=== PATIENT | female | born 1945 | race African-American/Black ===

== ENCOUNTER 2016-10-12 02:19 | Observation (INO) | payer MEDICARE, OTHER ==
[~2016-10-12] VITALS: Ht 167.6 cm; Wt 101.2 kg
--- NOTE | 2016-10-12 02:41 | ED.ADGEN ---
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 She describes this chest pain to her primary care physician who said that she would need to see a coating supervisor and possibly had stents placed for this suspected cardiac chest pain. Patient was asleep tonight when this pain woke her up from sleep she is diaphoretic from this pain. The pain is worsened with chest wall movement deep breaths whenever chest wall with her arms. The pain does radiate to the back as well as to each arm bilaterally she has describes some paresthesias in her upper extremities as well. She's been lightheaded and dizzy with some episodes but denies any dizziness at this time. She denies any nausea vomiting diarrhea. She does claim to have a slight cough once in a while which might be related to lisinopril. She denies any fevers chills change in medical regimen trauma or travel. PCPs Dr. Ivania Melgar. Review of Systems Review of Systems Constitutional: Denies fever or chills she has had some diaphoresis Eyes: Denies change in visual acuity, redness, or eye pain HENT: Denies nasal congestion or sore throat Respiratory: Denies cough or shortness of breath Cardiovascular: No additional information not addressed in HPI [] GI: Denies abdominal pain, nausea, vomiting, bloody stools or diarrhea [] : Denies dysuria or hematuria [] Musculoskeletal: Denies back pain or joint pain [] Integument: Denies rash or skin lesions [] Neurologic: Denies headache, focal weakness or sensory changes [] Endocrine: Denies polyuria or polydipsia [] Current Medications Current Medications Current Medications Medications (Trade) Dose Ordered Sig/Magda Start Time Stop Time Status Last Admin Dose Admin Aspirin (Thaddeus Aspirin) 325 mg 1X ONCE 10/12/16 03:00 10/12/16 03:01 DC Lorazepam (Ativan) 1 mg 1X ONCE 10/12/16 03:00 10/12/16 03:01 DC 10/12/16 02:49 1 MG Morphine Sulfate 4 mg 4 mg PRN Q15MIN PRN 10/12/16 02:45 10/13/16 02:44 10/12/16 02:48 4 MG Nitroglycerin (Nitrostat) 0.4 mg PRN Q5MIN PRN 10/12/16 02:45 10/13/16 02:44 10/12/16 02:49 0.4 MG Sodium Chloride (Iv Sodium Chloride 0.9% 1,000ml) 1,000 ml @ 1,000 mls/hr Q1H 10/12/16 03:00 10/12/16 03:59 10/12/16 02:51 1,000 MLS/HR Sodium Chloride (Normal Saline Flush) 10 ml QSHIFT PRN 10/12/16 02:45 Allergies Allergies Allergies Coded Allergies Type Severity Reaction Last Updated Verified acetic acid Allergy Intermediate 10/12/16 Yes bacitracin Allergy Intermediate 10/12/16 Yes carbamide peroxide Allergy Intermediate 10/12/16 Yes hydrocortisone Allergy Intermediate 10/12/16 Yes neomycin Allergy Intermediate 10/12/16 Yes polymyxin B Allergy Intermediate 10/12/16 Yes Unclear antibiotic eardrops, surgical tape Physical Exam Physical Exam Constitutional: Well developed, well nourished, moderate distress no obvious diaphoresis patient is mildly tachypneic HENT: Normocephalic, atraumatic, bilateral external ears normal, oropharynx moist, no oral exudates, nose normal. [] Eyes: PERRLA, EOMI, conjunctiva normal, no discharge. [] Neck: Normal range of motion, no tenderness, supple, no stridor. [] Cardiovascular patient does state significant chest wall tenderness to palpation which is worsened with direct pressure over the xiphoid sternum and upper abdomen. Lungs & Thorax: Bilateral breath sounds clear to auscultation [] Abdomen: Bowel sounds normal, soft, no tenderness, no masses, no pulsatile masses. [] Skin: No diaphoresis skin warm and dry and intact Back: No tenderness, no CVA tenderness. [] Extremities: No tenderness, no cyanosis, no clubbing, ROM intact, no edema. [] Neurologic: Alert and oriented X 3, normal motor function, normal sensory function, no focal deficits noted. [] Psychologic: Affect normal, judgement normal, mood normal. [] Current Patient Data Vital Signs Vital Signs Date Time Temp Pulse Resp B/P Pulse Ox O2 Delivery O2 Flow Rate FiO2 10/12/16 03:08 74 12 130/73 98 Nasal Cannula 2 10/12/16 02:25 97.9 Vital signs on arrival blood pressure 142/92 sats 98% pulse 91 respirations 25. Lab Results Laboratory Tests Test 10/12/16 02:25 10/12/16 02:35 White Blood Count 8.2x10^3/uL (4.0-11.0) Red Blood Count 4.32x10^6/uL (3.50-5.40) Hemoglobin 13.1g/dL (12.0-15.5) Hematocrit 39.8% (36.0-47.0) Mean Corpuscular Volume 92fL (79-100) Mean Corpuscular Hemoglobin 30pg (25-35) Mean Corpuscular Hemoglobin Concent 33g/dL (31-37) Red Cell Distribution Width 14.7% (11.5-14.5) H Platelet Count 252x10^3/uL (140-400) Neutrophils (%) (Auto) 52% (31-73) Lymphocytes (%) (Auto) 39% (24-48) Monocytes (%) (Auto) 8% (0-9) Eosinophils (%) (Auto) 1% (0-3) Basophils (%) (Auto) 0% (0-3) Neutrophils # (Auto) 4.2x10^3uL (1.8-7.7) Lymphocytes # (Auto) 3.2x10^3/uL (1.0-4.8) Monocytes # (Auto) 0.6x10^3/uL (0.0-1.1) Eosinophils # (Auto) 0.1x10^3/uL (0.0-0.7) Basophils # (Auto) 0.0x10^3/uL (0.0-0.2) Sodium Level 139mmol/L (136-145) Potassium Level 4.0mmol/L (3.5-5.1) Chloride Level 103mmol/L (98-107) Carbon Dioxide Level 26mmol/L (21-32) Anion Gap 10 (6-14) Blood Urea Nitrogen 10mg/dL (7-20) Creatinine 1.0mg/dL (0.6-1.0) Estimated GFR (Cockcroft-Gault) 66.5 BUN/Creatinine Ratio 10 (6-20) Glucose Level 157mg/dL (70-99) H Calcium Level 9.1mg/dL (8.5-10.1) Magnesium Level 1.7mg/dL (1.8-2.4) L Total Bilirubin 0.4mg/dL (0.2-1.0) Aspartate Amino Transferase (AST) 26U/L (15-37) Alanine Aminotransferase (ALT) 49U/L (14-59) Alkaline Phosphatase 95U/L (46-116) Creatine Kinase 89U/L (26-192) Creatine Kinase MB (Mass) 0.6ng/mL (0.0-3.6) Creatine Kinase MB Relative Index 0.7% (0-4) Troponin I Quantitative < 0.017ng/mL (0-0.055) BR-Mkq-X-Type Natriuretic Peptide 44pg/mL (0-124) Total Protein 7.8g/dL (6.4-8.2) Albumin 3.5g/dL (3.4-5.0) Albumin/Globulin Ratio 0.8 (1.0-1.7) L Lipase 76U/L (73-393) POC Troponin I 0.00ng/ml (<0.08) EKG EKG EKG timed 2:22 AM 10/12/2016 heart rate of 87 normal sinus rhythm P waves within normal limits QRS within normal limits and normal width. Patient is T-wave flattening in the anterior leads V1 and V2 V3 elevationorchangesconsistentwithacutecoronaryeventatthistime.PatientalsoT- [id number].[] Radiology/Procedures Radiology/Procedures [Chest x-ray dated 10/04/2016 approximately 241 morning this rates well-inflated lungs no evidence of pneumothorax. Cardiac shadow is within normal limits with no evidence of pleural effusion. No subcutaneous air bony structures are within normal limits with no fractures.] Course & Med Decision Making Course & Med Decision Making Pertinent Labs and Imaging studies reviewed. (See chart for details) [Upon patient arrival history and physical very concerning for possible cardiac ischemia EKG was within normal limits with no obvious evidence of acute coronary event. Patient early taken aspirin prior to arrival oxygen fluids nitrates and morphine all improved symptoms per patient is calm, comfortable. Initial i-STAT troponin was negative. Patient's heart score is is approximately 3 which post sternotomy score of 12-16.6% at this point we'll continue to wait for labs to return admit patient to the hospital for cardiac evaluation possible for her to outpatient PCI for stenting.] Patient's pain is improved from a 10 of 10 now to a 5 of 10. It is no episodic lasting only seconds. This is very atypical for cardiac chest pain. I think patient is safe for admission as a moderate risk chest pain patient to be admitted to the hospital for serial examinations and evaluation by coating supervisor in the morning. Differential diagnosis includes but not limited to acute coronary syndrome, aortic dissection, pulmonary medicine, as pneumothorax pneumothorax, pericardial tap and on, mediastinitis, pericarditis, myocarditis, endocarditis, heart failure, pulmonary malignancy, esophageal reflux, Boerhaave syndrome syndrome, hiatal hernia, pancreas, musculoskeletal chest pain, psychiatric chest tightness, herpes zoster, lupus, sarcoid, scleroderma, Page on-call BURKE for admission for chest pain rule out. Times now 3:25 AM page returned at 3:27 AM accepted by attending physician. I discussed disposition with family and patient and the agreement. Final Impression Final Impression Chest pain of unclear etiology, hypertension [] Problems: Dragon Disclaimer Dragon Disclaimer This electronic medical record was generated, in whole or in part, using a voice recognition dictation system. JUSTIN LEOS MD Oct 12, 2016 02:41
[2016-10-12] MEDS ORDERED: MORPHINE SULFATE 4 MG/ML DISP.SYRIN. IV/SQ PRN (02:45)
[2016-10-12] MEDS ORDERED: NITROGLYCERIN SUBLINGUAL 0.4 MG BOTTLE OF 25. SL PRN ×2 (02:45→04:50)
[2016-10-12] MEDS ORDERED: 0.9 % SODIUM CHLORIDE 10 ML DISP.SYRIN. IV PRN (02:45)
[2016-10-12 02:52] LABS: BASO % 0 % (0-3); EOS # 0.1 x10^3/uL (0.0-0.7); EOS % 1 % (0-3); HEMATOCRIT 39.8 % (36.0-47.0); HEMOGLOBIN 13.1 g/dL (12.0-15.5); LYMPH # 3.2 x10^3/uL (1.0-4.8); LYMPH % 39 % (24-48); MEAN CORPUSCULAR HEMOGLOBIN 30 pg (25-35); MEAN CORPUSCULAR HGB CONC 33 g/dL (31-37); MEAN CORPUSCULAR VOLUME 92 fL (79-100); MONO # 0.6 x10^3/uL (0.0-1.1); MONO % 8 % (0-9); NEUT # 4.2 x10^3uL (1.8-7.7); NEUT % 52 % (31-73); PLATELET COUNT 252 x10^3/uL (140-400); RED BLOOD COUNT 4.32 x10^6/uL (3.50-5.40); RED CELL DISTRIBUTION WIDTH 14.7 % (11.5-14.5); WHITE BLOOD COUNT 8.2 x10^3/uL (4.0-11.0)
[2016-10-12] MEDS ORDERED: LORAZEPAM 2 MG/ML VIAL IV ONE (03:00)
[2016-10-12] MEDS ORDERED: ASPIRIN 325 MG TABLET PO ONE (03:00)
[2016-10-12] MEDS ORDERED: IV NORMAL SALINE 1,000ML 1,000 ML IV SCH (03:00)
[2016-10-12 03:23] LABS: ALBUMIN 3.5 g/dL (3.4-5.0); ALBUMIN/GLOBULIN RATIO 0.8 (1.0-1.7); CALCIUM 9.1 mg/dL (8.5-10.1); GFR 66.5; MAGNESIUM 1.7 mg/dL (1.8-2.4); TOTAL BILIRUBIN 0.4 mg/dL (0.2-1.0); TOTAL PROTEIN 7.8 g/dL (6.4-8.2)
--- NOTE | 2016-10-12 04:21 | EKG ---
[address] [address] Test Date: 2016-10-12 Test Time: 02:29:28 Pat Name: CLARE ROSARIO Department: Room: 105 A Gender: F Lecturer In Computer Science: : 1945 Requested By: JUSTIN LEOS Order Number: [id number] Reading MD: Maximiliano Muniz Measurements Intervals [place] Rate: 87 P: 36 RI: 140 QRS: -15 QRSD: 76 T: 17 QT: 392 QTc: 472 Interpretive Statements SINUS RHYTHM NON-SPECIFIC ST/T CHANGES Electronically Signed On 10-15-2016 9:38:23 CDT by Maximiliano Muniz
[2016-10-12] MEDS ORDERED: ONDANSETRON PF 4 MG/2 ML VIAL. IV PRN (04:50)
[2016-10-12] MEDS: MORPHINE SULFATE 4 MG/ML DISP.SYRIN. IV PRN ×3 (05:18→17:38)
--- NOTE | 2016-10-12 05:20 | NUR ---
Sujata Coyle a 71 y/o was admitted to room 105 from the emergency room. Complaints of chest pain for a few months, she states it got worst yesterday around 1600. Pt oriented to room, unit and admission completed. Pt complains of pain reoccurence with moving to unit bed from stretcher. Pt medicated per orders. Reviewed poc with pt.
[2016-10-12 05:35] VITALS: BP 145/83
[2016-10-12] MEDS: IV NORMAL SALINE 1,000ML 1,000 ML IV SCH ×2 (06:00→17:36)
[2016-10-12] MEDS ORDERED: ESCI20TA (07:00)
[2016-10-12] MEDS ORDERED: ERGO500012 (07:00)
[2016-10-12] MEDS ORDERED: SITA1TAB11 (07:00)
[2016-10-12] MEDS ORDERED: AMIT25TA (07:00)
[2016-10-12] MEDS ORDERED: OMEP20CA9 (07:00)
[2016-10-12] MEDS ORDERED: LISI-338 (07:00)
[2016-10-12] MEDS ORDERED: GLYB3TAB (07:00)
[2016-10-12] MEDS ORDERED: [UNRECOGNIZED DRUG - CODE] (07:00)
--- NOTE | 2016-10-12 07:17 | RAD ---
Exam: AP portable chest. History: Chest pain or shortness of air beginning tonight. Comparison: None. Findings: The heart and mediastinal structures are within normal limits for size. Lungs are without infiltrate. No pneumothorax or pleural effusion is appreciated. Impression: 1. No acute cardiopulmonary process.
[2016-10-12] MEDS ORDERED: PANTOPRAZOLE 40 MG TABLET. PO ONE (09:30)
[2016-10-12] MEDS: KETOROLAC 30 MG/ML VIAL. IM PRN ×2 (09:40→19:26)
--- NOTE | 2016-10-12 10:13 | PDOC2 ---
CONSULT Date of Admission DATE: 10/12/16 TIME: 09:54 Reason for Consult: cp History of Present Illness Ms Coyle is a 71 year old female with a history of hypertension and diabetes mellitus who presents with complaints of chest pain. She reports off an on pain for several weeks that became constant yesterday and increased so she presented to ED. She describes a catching sensation in her lower sternal area that radiates along her ribs on the right side beneath her breast, into her back. She reported some associated radiation down both arms with tingling in her hands to the ED physician. The pain is increased with movement and she is tender to palpation right and left of the mid sternum as well as along her right costal margin. She also reports some chest pressure that has been off and on which increases with exertion and resolves with rest after about 10 minutes. She reports dyspnea on exertion that occurs off and on with walking about 50 feet. She has reduced her activity over the last couple of years but has recently gone back to work and reports increased symptoms since that time. She complains of chronic fatigue. She denies congestive symptoms but does sleep with 4 pillows chronically due to neck pain. She frequently has headaches associated with her neck pain. She does have additional complaints of epigastric pain associated with eating. She reports immediate onset when this occurs. Past Medical History Diabetes mellitus hypertension arthritis depression she reports frequent strep infections when she was young but denies rheumatic fever Past Surgical History javan, tubal ligation, 5 foot surgeries, right wrist and left knee surgeries. Family History Alzheimer disease in her mother otherwise unknown Social History non smoker, no significant ETOH, no illicit drugs Current Medications She reports metformin and lisinopril at home but is unsure of what else or doses. She gets her medications from [place]. Current Medications Aspirin (Thaddeus Aspirin) 325 mg 1X ONCE PO ; Start 10/12/16 at 03:00; Stop 10/12 at 03:01; Status DC Lorazepam (Ativan) 1 mg 1X ONCE IV Last administered on 10/12/16 02:49; Start 10/12/16 at 03:00; Stop 10/12/16 at 03:01; Status DC Nitroglycerin (Nitrostat) 0.4 mg PRN Q5MIN PRN SL CP RATING > 1/10 Last administered on 10/12/16 02:49; Start 10/12/16 at 02:45; Stop 10/12/16 at 04:59 ; Status DC Morphine Sulfate 4 mg 4 mg PRN Q15MIN PRN IV/SQ PAIN GREATER THAN 3/10 Last administered on 10/12/16 02:48; Start 10/12/16 at 02:45; Stop 10/13/16 at 02:44 Sodium Chloride (Iv Sodium Chloride 0.9% 1,000ml) 1,000 ml @ 1,000 mls/hr Q1H IV Last administered on 10/12/16 02:51; Start 10/12/16 at 03:00; Stop at 04:00; Status DC Sodium Chloride (Normal Saline Flush) 10 ml QSHIFT PRN IV AFTER MEDS AND BLOOD DRAWS; Start 10/12/16 at 02:45 Morphine Sulfate (Morphine 4mg Syringe) 4 mg PRN Q4HRS PRN IV SEVERE PAIN Last administered on 10/12/16 09:07; Start 10/12/16 at 04:50 Nitroglycerin (Nitrostat) 0.4 mg PRN Q5MIN PRN SL CHEST PAIN Last administered on 10/12/16 05:30; Start 10/12/16 at 04:50 Ondansetron HCl 4 mg 4 mg PRN Q6HRS PRN IV NAUSEA/VOMITING Last administered on 10/12/16 05:17; Start 10/12/16 at 04:50 Sodium Chloride (Iv Sodium Chloride 0.9% 1,000ml) 1,000 ml @ 100 mls/hr Q10H IV Last administered on 10/12/16 06:00; Start 10/12/16 at 06:00 Ketorolac Tromethamine (Toradol) 30 mg PRN Q6HRS PRN IM PAIN Last administered on 10/12/16 09:40; Start 10/12/16 at 09:00; Stop 10/17/16 at 08:59 Pantoprazole Sodium (Protonix) 40 mg 1X ONCE PO Last administered on 09:40; Start 10/12/16 at 09:30; Stop 10/12/16 at 09:31; Status DC Aspirin (Children'S Aspirin) 81 mg DAILYWBKFT PO ; Start 10/13/16 at 09:45 Metoprolol Tartrate (Lopressor) 12.5 mg BID PO ; Start 10/12/16 at 09:45 Active Scripts Active Reported Janumet 50-1,000 Mg Tablet (Sitagliptin Phos/Metformin Hcl) 1 Each Tablet Escitalopram Oxalate 20 Mg Tablet Amitriptyline Hcl 25 Mg Tablet Allergy Relief (Fexofenadine Hcl) 180 Mg Tablet Lisinopril 5 Mg Tablet Vitamin D2 (Ergocalciferol (Vitamin D2)) 50,000 Unit Capsule Omeprazole 20 Mg Capsule.dr Mata (Glyburide,Micronized) 3 Mg Tablet Allergies: Coded Allergies: acetic acid (Verified Allergy, Intermediate, 10/12/16) bacitracin (Verified Allergy, Intermediate, 10/12/16) EAR DROPS carbamide peroxide (Verified Allergy, Intermediate, 10/12/16) hydrocortisone (Verified Allergy, Intermediate, 10/12/16) EAR DROPS neomycin (Verified Allergy, Intermediate, 10/12/16) EAR DROPS polymyxin B (Verified Allergy, Intermediate, 10/12/16) EAR DROPS General: YES: Fatigue PSYCHOLOGICAL ROS: YES: Depression HEENT: YES: [place] ALLERGY AND IMMUNOLOGY: YES: Post Nasal Drip, Seasonal Allergies Respiratory: YES: Cough, SOB with excertion Cardiovascular: yes: Chest Pain Musculoskeletal: YES: Joint Pain, Pain In: (neck) Neurological: YES: Dizziness, Numbness/Tingling General: Alert, Oriented X3, Cooperative, moderate distress HEENT: Atraumatic, EOMI, Mucous membr. moist/pink Lungs: Clear to auscultation, Normal air movement Heart: Regular rate, Normal S1, Normal S2, Other (no obvious murmurs, no gallops, clicks or rubs) Abdomen: Normal bowel sounds, Soft Extremities: No clubbing, No cyanosis, No edema, Normal pulses Neuro: Normal speech, Strength at 5/5 X4 ext Psych/Mental Status: Mental status NL, Mood NL VITALS Vital Signs Date Time Temp Pulse Resp B/P Pulse Ox O2 Delivery O2 Flow Rate FiO2 10/12/16 06:54 18 98 Nasal Cannula 2.0 10/12/16 05:35 97.5 73 145/83 Labs Laboratory Tests Test 10/12/16 02:25 10/12/16 02:35 10/12/16 06:16 White Blood Count 8.2x10^3/uL (4.0-11.0) Red Blood Count 4.32x10^6/uL (3.50-5.40) Hemoglobin 13.1g/dL (12.0-15.5) Hematocrit 39.8% (36.0-47.0) Mean Corpuscular Volume 92fL (79-100) Mean Corpuscular Hemoglobin 30pg (25-35) Mean Corpuscular Hemoglobin Concent 33g/dL (31-37) Red Cell Distribution Width 14.7% (11.5-14.5) Platelet Count 252x10^3/uL (140-400) Neutrophils (%) (Auto) 52% (31-73) Lymphocytes (%) (Auto) 39% (24-48) Monocytes (%) (Auto) 8% (0-9) Eosinophils (%) (Auto) 1% (0-3) Basophils (%) (Auto) 0% (0-3) Neutrophils # (Auto) 4.2x10^3uL (1.8-7.7) Lymphocytes # (Auto) 3.2x10^3/uL (1.0-4.8) Monocytes # (Auto) 0.6x10^3/uL (0.0-1.1) Eosinophils # (Auto) 0.1x10^3/uL (0.0-0.7) Basophils # (Auto) 0.0x10^3/uL (0.0-0.2) Sodium Level 139mmol/L (136-145) Potassium Level 4.0mmol/L (3.5-5.1) Chloride Level 103mmol/L (98-107) Carbon Dioxide Level 26mmol/L (21-32) Anion Gap 10 (6-14) Blood Urea Nitrogen 10mg/dL (7-20) Creatinine 1.0mg/dL (0.6-1.0) Estimated GFR (Cockcroft-Gault) 66.5 BUN/Creatinine Ratio 10 (6-20) Glucose Level 157mg/dL (70-99) Calcium Level 9.1mg/dL (8.5-10.1) Magnesium Level 1.7mg/dL (1.8-2.4) Total Bilirubin 0.4mg/dL (0.2-1.0) Aspartate Amino Transf (AST/SGOT) 26U/L (15-37) Alanine Aminotransferase (ALT/SGPT) 49U/L (14-59) Alkaline Phosphatase 95U/L (46-116) Creatine Kinase 89U/L (26-192) 69U/L (26-192) Creatine Kinase MB (Mass) 0.6ng/mL (0.0-3.6) 0.5ng/mL (0.0-3.6) Creatine Kinase MB Relative Index 0.7% (0-4) 0.7% (0-4) Troponin I Quantitative < 0.017ng/mL (0-0.055) < 0.017ng/mL (0-0.055) QD-Dmb-P-Type Natriuretic Peptide 44pg/mL (0-124) Total Protein 7.8g/dL (6.4-8.2) Albumin 3.5g/dL (3.4-5.0) Albumin/Globulin Ratio 0.8 (1.0-1.7) Lipase 76U/L (73-393) Bedside Troponin I 0.00ng/ml (<0.08) Images EKG - sinus rhythm with non specific t abn. no acute ischemic changes. CXR - no acute process Assessment/Plan 1. Chest pain, multifactorial -Acute pain likely musculoskeletal - continue analgesics, could possibly benefit from MRI C spine outpatient. Mgmt per PCP. -Intermittent chest pressure with associated decrease in functional capacity and dyspnea on exertion more concerning for coronary disease. [place] is ruled out. Suggest echocardiogram for LV function and wall motion. If no acute abnormalities, suggest outpatient lexiscan MPI. Will start aspirin, and beta yuni. Request home med list and adjust accordingly. Check lipids. 2. Hypertension - resume home meds 3. unknown lipid status - check lipids 4. diabetes mellitus - per PCP 5. epigastric pain - PPI, suggest outpatient GI evaluation. Problems: JUWAN MENENDEZ COMPLAINT SUPERVISOR Oct 12, 2016 10:13
[2016-10-12] MEDS: METOPROLOL TART IMMED RELEASE 25 MG TABLET PO SCH ×3 (10:30→20:26)
[2016-10-12] MEDS ORDERED: MAGNESIUM SULFATE 2GM 50 ML IV ONE (10:30)
--- NOTE | 2016-10-12 10:46 | ACF ---
Admit Criteria Forms Admit Criteria Forms Admit Criteria Forms CARDIOLOGY GRG Clinical Indications for Admission to Inpatient Care ( Place 'X' for any and all applicable criteria): Hospital admission is needed for appropriate care of the patient because of ANY ONE of the following (1): [ ] I. Hemodynamic instability as indicated by ALL of the following (1)(2)(3) (4)(5) [ ]a) Vital signs or other findings not as expected for chronic patient condition or baseline [ ]b) Instability indicated by ANY ONE of the following: [ ]i) Hypotension [ ]ii) Symptomatic Tachycardia unresponsive to treatment ( e.g., analgesia, fluids, sedation as indicated) [ ]iii) Inadequate perfusion indicated by ANY ONE of the following: [ ] 1) Lactic acidosis (> 2 mmol/L) [ ] 2) New abnormal capillary refill (> 3 seconds) [ ] 3) Reduced urine output [ ] 4) New altered mental status [ ]iv) Orthostatic vital sign changes unresponsive to treatment (e.g., fluids) [ ]v) IV inotropic or vasopressor medication required to maintain adequate blood pressure or perfusion [ ] II. Severe heart failure as indicated by ANY ONE of the following(17)(18) [ ]a) Respiratory distress [ ]b) Hypotension [ ]c) Anasarca (refractory to outpatient therapy) [ ]d) Cardiac arrhythmias of immediate concern [ ]e) Myocardial ischemia [ ] III. Cardiac arrhythmias or findings of immediate concern indicated by ANY ONE of the following (19)(20): [ ] a) Heart rhythms that are inherently dangerous or unstable indicated by ANY ONE of the following (21)(22)(23): [ ] i) Resuscitated ventricular fibrillation or cardiac arrest [ ] ii) Ventricular escape rhythm [ ] iii) Sustained ventricular tachycardia (30 seconds or more of ventricular rhythm at greater than 100 beats per minute) [ ] iv) Nonsustained ventricular tachycardia and ANY ONE of the following: [ ] 1) Suspected cardiac ischemia as cause or consequence of ventricular tachycardia [ ] 2) In setting of acute myocarditis [ ] b) Unstable cardiac conduction defects indicated by ANY ONE of the following(23)(24)(25) [ ] i) Type II second-degree atrioventricular block [ ]ii) Third-degree atrioventricular block [ ]iii) New-onset left bundle branch block with suspected myocardial ischemia [ ]c) Any heart rhythm and ANY ONE of the following (21)(22)(26)(27) (28) [ ] i) Continuous long-term ECG monitoring needed (e.g., initiation of drug requiring monitoring for more than 24 hours) [ ] ii) Patient has automatic implanted cardioverter defibrillator that is repeatedly firing, malfunctioning, or in need of immediate adjustment of settings beyond the scope of ambulatory or observation care [ ]d) Heart rhythms of concern due to ANY ONE of the following: [ ] i) Hypotension [ ] ii) Respiratory distress [ ] iii) Association with other significant symptoms (e.g., bradycardia with syncope or ongoing dizziness, supraventricular tachycardia with chest pain (14)(15)(17) [ ] IV. Monitoring for cardiac contusion beyond the scope of observation care needed [A](30)(31)(32) [ ] V. Surgical or device complication (e.g., valve replacement complication , pacemaker dysfunction) (35)(41)(44)(45)(46) [ ] . Inpatient palliative care needed. [B](49) Also use Inpatient Palliative Care Criteria [ ] VII. Nonbacterial thrombotic (marantic) endocarditis (36)(43)(47)(48) [X] VIII. Cardiology condition, symptom, or finding for which emergency and observation care has failed or are not considered appropriate. [ ] IX. Acute valvular disease requiring inpatient as indicated by ANY ONE of the following (41) [ ]a) Acute valvular regurgitation (42) [ ]b) Noninfectious valvulitis (43) [ ]c) Obstructive valve thrombosis [ ]d) Paravalvular leak [ ]e) Other significant valvular disorder remaining after emergency or observation level of care (as appropriate) [ ]X. Pericardial disease requiring inpatient treatment as indicated by ANY ONE of the following (33)(34)(35)(36)(37) [ ]a) Suspected tamponade (38)(39)(40) [ ]b) Hemopericardium [ ]c) Other significant pericardial disorder remaining after emergency or observation level of care (as appropriate) [ ] XI. Cardiac ischemia beyond scope of emergency and observation care. [ ] XII. Hypertension requiring inpatient treatment as indicated by ANY ONE of the following (6)(7)(8) [ ]a) SBP greater than 220 mm Hg or DBP greater than 120 mmHg despite treatment [ ]b) SBP greater than 140 mm Hg or DBP greater than 100 mm Hg with evidence of acute end organ damage as indicated by ANY ONE of the following [ ] i) Encephalopathy [ ] ii) Acute renal failure as indicated by new onset of ANY ONE of the following (9)(10)(11)(12)(13) [ ]1) 3-fold rise in serum creatinine from baseline [ ]2) Serum creatinine greater than 4 mg/dL ( 354 micromoles/L) with acute rise greater than 0.5 mg/dL (44.2 micromoles/L) [ ]3) Reduction of more than 75% in estimated glomerular filtration rate from baseline [ ]4) Estimated glomerular filtration rate less than 35 mL/min/1.73m2 (0.59 mL/sec/1.73m2) in child up to 18 years of age [ ]5) Cessation of urine output indicated by ALL of the following [ ]A. Adequate volume status [ ]B. Inadequate urine output as indicated by ANY ONE of the following [ ]a. Urine output less than 0.3 mL/kg/hr for 24 hours [ ]b. Anuria (urine output less than 0.1 mL/kg/hr) for 12 hours [ ] iii) Aortic dissection [ ] iv) Myocardial Ischemia [ ] v) Left ventricular heart failure [ ]vi) Retinal Hemorrhage [ ]vii) Other significant finding [ ]c) Hypertension in child requiring inpatient treatment as indicated by ALL of the following(14)(15)(16) [ ] i) Outpatient treatment not effective, not available, or not appropriate [ ]ii) SBP or DBP greater than 95th percentile for age [ ]iii) Evidence of acute end organ damage as indicated by ANY ONE of the following [ ]1) Altered mental status [ ]2) Acute renal failure as indicated by new onset of ANY ONE of the following(9)(10)(11)(12)(13) [ ]A. 3-fold rise in serum creatinine from baseline [ ]B. Serum creatinine greater than 4 mg/dL (354 micromoles/L) with acute rise greater than 0.5 mg/dL (44.2 micromoles/L) [ ]C. Reduction of more than 75% in estimated glomerular filtration rate from baseline [ ]D. Estimated glomerular filtration rate less than 35 mL/min/1.73m2 (0.59 mL/sec/1.73m2) in child up to 18 years of age [ ]E. Cessation of urine output indicated by ALL of the following [ ]a. Adequate volume status [ ]b. Inadequate urine output as indicated by ANY ONE of the following [ ]i) Urine output less than 0.3 mL/kg/hr for 24 hours [ ]ii) Anuria ( urine output less than 0.1 mL/kg/hr) for 12 hours [ ]3) Severe headache [ ]4) Visual disturbance [ ]5) Retinal hemorrhage [ ]6) Other significant finding [ ]XIII. Complications of transplanted heart indicated by ANY ONE of the following(61): [ ]a) Acute graft rejection requiring inpatient management (eg, intravenous immunosuppression)(62)(63) [ ]b) Acute graft heart failure indicated by ANY ONE of the following(64): [ ]i) Hemodynamic instability [ ]ii) Cardiac arrhythmias of immediate concern [ ]iii) Pulmonary edema that is very severe (eg, mechanical ventilation needed, imminent or likely, need for 100% oxygen to keep oxygen saturation above 90%) [ ]iv) Pulmonary edema that is persistent as indicated by ALL of the following: [ ]1) New need for oxygen therapy to keep oxygen saturation above 90% (or increased FiO2 need from baseline) [ ]2) Has not improved sufficiently with emergency department or observation care IV diuretics or other heart failure treatments[E] [ ]v) Altered mental status that is severe or persistent [ ]vi) Increased creatinine (new on laboratory test) with reduction of more than 50% in estimated glomerular filtration rate from baseline [ ]vii) Progressively (ongoing) rising creatinine (known from past laboratory test) with reduction of more than 25% in estimated glomerular filtration rate from baseline [ ]viii) Acute renal failure [ ]ix) Acute peripheral ischemia (eg, examination shows pulseless, cool, mottled, or cyanotic extremity) [ ]x) Pulmonary artery catheter monitoring needed [ ]xi) Other sign or symptom of heart failure requiring inpatient treatment (ie, too severe or not responsive to outpatient and observation care treatment) [ ]c) Infection requiring inpatient management (eg, Hemodynamic instability, need for intravenous antimicrobial treatment)(66)(67)(68)(69)(70) [ ]d) Cardiac allograft vasculopathy requiring inpatient management ( eg evidence of cardiac ischemia)(71) [ ]e) Other complication of transplanted heart (eg, stroke, severe pulmonary hypertension, severe valvular dysfunction) requiring inpatient management(72) The original [facility] content created by [facility] has been revised. The portions of the content which have been revised are identified through the use of italic text or in bold, and [facility] has neither reviewed nor approved the modified material. All other unmodified content is copyright [facility]. Please see references footnoted in the original [facility] edition 2016 ALEXANDER ANGEL Oct 12, 2016 10:46
--- NOTE | 2016-10-12 11:00 | NUR ---
Patient complains of pain rated 10/10 in chest area. Given PRN morphine 2mg IV for pain at 0907. Patient continued to complain of pain rated 8/10. At 0940 gave PRN toradol IM per order for pain. Patient is now resting in bed without s/s of pain.
[2016-10-12 11:34] VITALS: BP 106/65
[2016-10-12 12:54] LABS: CREATINE KINASE 64 U/L (26-192)
--- NOTE | 2016-10-12 15:28 | CARD ---
APPROVED REPORT EXAM: Two-dimensional and M-mode echocardiogram with Doppler and color Doppler. Other Information Quality : Good INDICATION Chest Pain 2D DIMENSIONS RVDd2.7 (2.9-3.5cm)Left Atrium(2D)4.1 (1.6-4.0cm) IVSd1.2 (0.7-1.1cm)Aortic Root(2D)2.3 (2.0-3.7cm) LVDd4.9 (3.9-5.9cm)LVOT Diameter1.9 (1.8-2.4cm) PWd1.2 (0.7-1.1cm)LVDs3.5 (2.5-4.0cm) FS (%) 29.3 %SV63.8 ml LVEF(%)56.0 (>50%) Aortic Valve AoV Peak Ethan.139.8cm/sAoV VTI26.9cm AO Peak GR.7.8mmHgLVOT Peak Ethan.100.8cm/s LVOT VTI 19.10cmAO Mean GR.5mmHg YVONNE (VMAX)1.94hz8IED (VTI)1.91cm2 Mitral Valve MV E Zysltdzh45.2cm/sMV DECEL ZBUI014xr MV A Khfngwds01.0cm/sE/A Ratio0.7 Tricuspid Valve TR P. Ziolukuo470bi/sRAP AFTQQMAL6vaPc TR Peak Gr.59ywVwNGZH29ehXi Pulmonary Vein S1 Jrpkeloo98.2cm/sD2 Aqsrbwom02.8cm/s LEFT VENTRICLE The left ventricle is normal size. There is mild concentric left ventricular hypertrophy. The left ve ntricular systolic function is normal and the ejection fraction is within normal range.The Ejection F raction is 55-60%. There is normal LV segmental wall motion. Cannot rule out basal to mid inferior wa ll hypokinesis. Transmitral Doppler flow pattern is Grade I-abnormal relaxation pattern. RIGHT VENTRICLE The right ventricle is normal size. The right ventricular systolic function is normal. ATRIA The left atrium is mildly dilated. The right atrium size is normal. The interatrial septum is intact with no evidence for an atrial septal defect or patent foramen ovale as noted on 2-D or Doppler imagi ng. AORTIC VALVE The aortic valve is calcified but opens well. Doppler and Color Flow revealed no significant aortic r egurgitation. There is no significant aortic valvular stenosis. MITRAL VALVE The mitral valve is normal in structure and function. There is no evidence of mitral valve prolapse. There is no mitral valve stenosis. Doppler and Color-flow revealed trace mitral regurgitation. TRICUSPID VALVE The tricuspid valve is normal in structure and function. Doppler and Color Flow revealed trace tricus pid regurgitation. The PA pressure was estimated at 31 mmHg. There is no tricuspid valve stenosis. PULMONIC VALVE Doppler and Color Flow revealed trace pulmonic valvular regurgitation. There is no pulmonic valvular stenosis. GREAT VESSELS The aortic root is normal in size. The ascending aorta is normal in size. The IVC is normal in size a nd collapses >50% with inspiration. PERICARDIAL EFFUSION There is no evidence of significant pericardial effusion. Critical Notification Critical Value: No <Conclusion> There is normal LV segmental wall motion. Cannot rule out basal to mid inferior wall hypokinesis. The left ventricular systolic function is normal and the ejection fraction is within normal range.The Ejection Fraction is 55-60%.
[2016-10-12 15:51] VITALS: BP 137/62
[2016-10-12] MEDS ORDERED: CONTRAST GIVEN MC PRN (17:30)
[2016-10-12] MEDS ORDERED: IOHEXOL 300 MG/ML 75 ML VIAL. IV ONE (17:30)
--- NOTE | 2016-10-12 17:42 | HP ---
ADMIT DATE: 10/12/2016 HISTORY OF PRESENT ILLNESS: The patient is a 71-year-old -[place] female patient who came to the Emergency Room with a complaint of chest pain. The patient stated that her pain has been going on for more than 6 weeks and the pain started on the right side of the neck and spreads down to her chest, worse with movement and taking a deep breath. She did report some associated radiation down her both arms and tingling in her hands. The pain is increased with movement and she is tender to palpation in the right and left side of the mid sternum as well as along the right costal margin. She denied any chills, rigors or fever. She did also complain of some shortness of breath on exertion. She works as branch general manager at the [employer] and she was evaluated in the Emergency Room and her first cardiac enzyme which was less than 0.017. The patient was admitted to do 2 more sets of cardiac enzymes and consult the technical account representative. PAST MEDICAL HISTORY: Significant for type 2 diabetes, hypertension, arthritis, depression. 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 ALLERGIES: SHE IS ALLERGIC TO ACETIC ACID, BACITRACIN, CARBAMIDE PEROXIDE, HYDROCORTISONE, NEOMYCIN AND POLYMYXIN. MEDICATIONS: She is currently on following medications: Amitriptyline 25 mg once a day, ergocalciferol 50,000 units once a month, escitalopram oxalate 20 mg once a day, fexofenadine 180 mg once a day, glyburide 3 mg once a day, lisinopril 5 mg once a day, omeprazole 20 mg once a day and sitagliptin, metformin for Januvia 50 to 1000 mg once a day. FAMILY HISTORY: She has 1 younger sister who is in poor health with possible pancreatic cancer. Her father at age of 80 because of prostate cancer and mother at age of 94 of Alzheimer disease. SOCIAL HISTORY: She is , has one daughter and one son. She never smoked, does not drink alcohol. 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 REVIEW OF SYSTEMS: The patient denied any blurring of vision, cataract, glaucoma or macular degeneration. Denied any earache, tinnitus or sensorineural deafness. Denied any nosebleeds, stuffy nose or postnasal drip. Denied any sore throat, sore tongue, toothache, hoarseness of voice or difficulty swallowing. Denied any nausea, vomiting, diarrhea or constipation. Denied any hematemesis, melena or hematochezia. Denied any dysuria, frequency or hematuria. She did complain of chest pain, shortness of breath. Denied any cough, phlegm or hemoptysis. PHYSICAL EXAMINATION: GENERAL: On arrival to the Emergency Room, she was slightly tachypneic, but not jaundiced, cyanosis, or thyromegaly. No jugular venous distention. No limb edema. VITAL SIGNS: Her heart rate was 81, blood pressure was 162/70, temperature was 97.9, respiratory rate was 25, and oxygen saturation was 97% on 2 liters of oxygen. HEAD, EYES, EARS, NOSE AND THROAT: Shows normocephalic, atraumatic. NECK: Supple. No lymphadenopathy, no thyromegaly. No jugular venous distension. No lower limb edema. HEART: Showed normal first and second heart sounds with no gallop, rub or murmur. CHEST: Shows central trachea, equal bilateral expansion, air entry, vesicular sounds. No crepitation or rhonchi. She has markedly reducible tenderness in her sternum. ABDOMEN: Distended, soft, nontender. NEUROLOGIC: She is awake, alert, responding appropriately. Cranial nerves are intact. EXTREMITIES: She moves extremities without difficulty. She ambulates without assistance or assistive devices. LABORATORY DATA: Showed a serum sodium 139, potassium 4, chloride 103, bicarbonate 26, anion gap of 10, BUN 10, creatinine 1, estimated GFR was 66 mL per minute. Her glucose was 157, calcium was 9.1, magnesium 1.7. Total bilirubin, AST, ALT, alkaline phosphatase were normal. Her total protein was 7.8, albumin 3.5. Lipase was 76. TSH was 2.35. Her white cell count was 8200, hemoglobin 13, hematocrit 39, MCV 92 and platelet count 252,000. She did have a chest x-ray, which basically showed the heart and mediastinal structures were within normal limits for heart size. Lungs without infiltrate, no pneumothorax or pleural effusion is appreciated. The patient was basically admitted. ASSESSMENT AND PLAN: The patient is to have 2 more sets of cardiac enzyme. We will consult the cardiology and decide on further management. Given that her complaints are more related to her neck and chest area, I have arranged also for her CT scan of the cervical spine and CT scan of the chest with PE protocol and we will decide on further management accordingly. LISA TURK MD DR: PILY/marv JOB#: [id number] / [id number]
--- NOTE | 2016-10-12 17:56 | NUR ---
Patient complains of pain rated 8/10. Given 4mg Morphine IV for pain. Will continue to monitor.
[2016-10-12 19:02] LABS: COLOR,URINE YELLOW
[2016-10-12 19:03] LABS: BILIRUBIN,URINE NEG (NEG); CLARITY,URINE HAZY; GLUCOSE,URINE NEG (NEG); NITRITE,URINE NEG (NEG); UROBILINOGEN,URINE 0.2 mg/dL (0.2 mg/dL)
[2016-10-12 19:04] LABS: BACTERIA,URINE 0 /HPF (0-FEW); SQUAMOUS EPITHELIAL CELL,UR MOD /LPF
[2016-10-12 19:43] VITALS: BP 142/70
--- NOTE | 2016-10-12 19:52 | RAD ---
Examination: CT Angiography chest. HISTORY History of chest pain, neck pain. COMPARISON None available. TECHNIQUE Axial CT images of the chest were performed using CT angiography protocol. Coronal sagittal 3D MIP reformats were performed. Exposure: One or more of the following dose reduction technique were utilized for this examination: 1. Automated exposure control. 2.Adjustment of MA and /or KV according to patient size. 3. Use of iterative reconstruction technique. Findings: The visualized thyroid gland grossly appears unremarkable. The central airways are patent. Mild cardiomegaly. The caliber of the aorta grossly appears unremarkable. Aberrant right subclavian artery is identified coursing posterior to the esophagus likely developmental. There is no evidence of filling defect identified in the main pulmonary arterial trunk and right and left main pulmonary arteries. There is no evidence of filling defect identified in the lobar, distal segmental branch of the pulmonary arteries visualized. Mild bibasilar lung atelectasis. Decreased attenuation noted throughout the liver likely hepatic steatosis. The visualized adrenal glands grossly appears unremarkable. Moderate degenerative changes thoracic spine. IMPRESSION - No evidence of pulmonary embolism identified. - Mild bibasilar lung airspace opacities likely atelectasis. - Aberrant right subclavian artery coursing posterior to the esophagus, developmental. - Hepatic steatosis. Electronically signed by: Reza Mobley (Oct 12, 2016 19:50:32)
--- NOTE | 2016-10-12 19:57 | RAD ---
Examination: CT cervical spine without contrast. HISTORY History of chest, neck pain. COMPARISON None available. TECHNIQUE Axial CT images of cervical spine was performed without contrast. Coronal sagittal reformats were performed. Exposure: One or more of the following dose reduction technique were utilized for this examination: 1. Automated exposure control. 2.Adjustment of MA and /or KV according to patient size. 3. Use of iterative reconstruction technique. Findings: There is straightening of normal cervical lordosis likely muscle spasm or pain. The bilateral facets are well aligned. Large anterior osteophyte formation identified at C4, C5, C6 vertebral levels with a small posterior osteophyte formation identified at this level. No obvious acute fracture identified. The lateral masses of C1 are aligned with C2 vertebra. The C2 dens appears intact. The apical lungs are clear. Impression: 1. Multilevel degenerative changes identified in the cervical spine at C4-C5, C5-C6 vertebral levels. 2. There is straightening of normal cervical lordosis likely muscle spasm or pain. Electronically signed by: Reza Mobley (Oct 12, 2016 19:55:36)
[2016-10-13] MEDS: MORPHINE SULFATE 4 MG/ML DISP.SYRIN. IV PRN (01:56)
[2016-10-13] MEDS: IV NORMAL SALINE 1,000ML 1,000 ML IV SCH ×2 (02:00→11:57)
--- NOTE | 2016-10-13 02:05 | NUR ---
Nursing Note: Scheduled 0200 NS administration signed at 0100 on down time forms.
[2016-10-13] MEDS: KETOROLAC 30 MG/ML VIAL. IV PRN ×3 (02:50→16:53)
[2016-10-13 03:00] VITALS: BP 144/88
[2016-10-13 06:26] VITALS: BP 138/84
[2016-10-13] MEDS ORDERED: ASPIRIN 81 MG TAB.CHEW PO SCH (09:45)
[2016-10-13 10:30] VITALS: BP 140/64
[2016-10-13 10:32] VITALS: BP 140/60
[2016-10-13] MEDS: METOPROLOL TART IMMED RELEASE 25 MG TABLET PO SCH (10:32)
[2016-10-13] MEDS ORDERED: METH4TAB2 PO (14:20)
[2016-10-13] MEDS ORDERED: TRAM50TA PO (14:26)
[2016-10-13] MEDS ORDERED: TEMA15CA PO (14:26)
--- NOTE | 2016-10-13 17:10 | NUR ---
Pt given perscriptions and d/c instructions regarding resuming Metformin on Saturday10/15/2016 d/t contrast dye given with procedure and follow-up with pcp for out-pt MRI for better view of cervical soft tissues, IV removed without incident, all pt belongings returned to pt, pt ambulated off unit w/friend Gladys and this RN to [facility] front entrance
--- NOTE | 2016-10-13 22:14 | DS ---
DATE OF DISCHARGE: 10/13/2016 HISTORY OF PRESENT ILLNESS: The patient is a 71-year-old -[place] female patient who was admitted with a complaint of chest pain that has been going on for several weeks. She describes a catching sensation in her lower sternal that radiates along with her ribs on the right side to the back. She had some shortness of breath. The pain is worse by on movement and taking a deep breath and it is actually reproducible on palpation of the right and left side of the sternum and costal margin. She was admitted and has had 3 sets of cardiac enzymes that were negative and showed the troponin to be less than 0.017. She has had an echocardiogram done, which showed that she has normal left ventricular wall motion abnormalities with normal ejection fraction of 55-60% and they recommended the patient to have a nuclear stress test as an outpatient. I did actually do also CT scan of the cervical spine, which showed that she has multilevel degenerative changes identified in the cervical spine at C4-C5, C5-C6 vertebral levels. There is straightening of the normal cervical lordosis, likely muscle spasm or pain and CT angio of the chest, which basically showed no evidence of pulmonary embolism identified. She has aberrant right subclavian artery coursing posterior to the esophagus. She is developmentally normally. She has also hepatic steatosis. PHYSICAL EXAMINATION: GENERAL: When I saw her today, she looked well and stated that her pain is much improved and decision was made basically to discharge her home to follow with her primary care physician. I also recommended that she probably needs an MRI of her cervical spine to elucidate her symptoms further. When I examined her this afternoon, she looked well and was clearly in no apparent respiratory distress, pale, but no jaundice, cyanosis, or thyromegaly. No jugular venous distention. No limb edema. VITAL SIGNS: Her heart rate was 65, blood pressure 140/64, temperature was 98.6, respiratory rate was 20 and oxygen saturation was 99%. HEAD, EYES, EARS, NOSE AND THROAT: Showed normocephalic, atraumatic. NECK: Supple. HEART: Showed normal first and second heart sounds with no gallop, rub or murmur. CHEST: Clear to auscultation. No crepitation or rhonchi. ABDOMEN: Slightly distended, soft, nontender. NEUROLOGIC: She was awake, alert, responding appropriately. Cranial nerves intact. EXTREMITIES: She moves extremities without difficulty. She ambulates without assistance or assistive devices. LABORATORY DATA: Showed a white cell count of 8200, hemoglobin 13, hematocrit 39, MCV 92 and platelet count of 252,000 with normal manual differential. Her chemistry showed a serum sodium 139, potassium 4, chloride 103, bicarbonate 26, anion gap of 10, BUN 10, creatinine 1. Estimated GFR was 66 mL per minute. Her glucose was 157. Calcium was 9. Magnesium 1.7. Total bilirubin, AST, ALT, alkaline phosphatase were normal. Her total protein was 7.8, albumin was 3.5. She did have 3 sets of cardiac enzymes show troponin to be less than 0.017. Her TSH was 2.351. Her urinalysis was unremarkable. As I stated, her chest x-ray showed that the heart and mediastinal structures are within normal limits for size. Her lungs are without infiltrate. No pneumothorax or pleural effusion is appreciated. Again, the CT scan of the chest with PE protocol showed no evidence of pulmonary embolism and the cervical spine showed multilevel degenerative changes identified in the cervical spine at C4-C5, C5-C6 vertebral levels. There is straightening of the normal cervical lordosis, likely muscle spasm or pain. DISCHARGE MEDICATIONS: She was discharged home to continue on cyclobenzaprine 10 mg 3 times a day as needed for muscle spasms, tapering course of steroids in the form of Medrol DosePak, temazepam 15 mg at bedtime and tramadol 50 mg every 6 hours as needed. I advised her to discontinue amitriptyline as the medication was likely causing her dryness of her mouth, vitamin D2 50,000 units once a month, escitalopram oxalate 20 mg once a day, fexofenadine for Lana 180 mg once a day, glyburide 3 mg once a day, lisinopril 5 mg once a day, omeprazole 20 mg once a day and sitagliptin/metformin for Januvia 1 tablet once a day. I advised her not to take this today and tomorrow. FINAL DISCHARGE DIAGNOSES: Chest pain, atypical, myocardial infarction ruled out. She has severe degenerative disk disease, hypertension, type 2 diabetes, generalized osteoarthritis and depression. LISA TURK MD DR: PILY/marv JOB#: [id number] / [id number]
== END 2016-10-13 17:17 | disposition home or self-care (01) ==
LOC: ER 02:19 → 1 SOUTH 03:33
PROVIDERS: ADMIT Internal Medicine; ATTEND Internal Medicine
DX: R07.89 Other chest pain (principal); E11.9 Type 2 diabetes mellitus without complications; F32.9 Major depressive disorder, single episode, unspecified; I10 Essential (primary) hypertension; K76.0 Fatty (change of) liver, not elsewhere classified; M15.9 Polyosteoarthritis, unspecified; Z79.899 Other long term (current) drug therapy
CPT/HCPCS: 36415; 71010; 71275; 72125; 80053; 81001; 82553; 83690; 83735; 83880; 84443; 84484; 85027; 87086; 93005; 93306; 96361; 96365; 96366; 96372; 96375; 96376; 99285; G0378; J1885; J2060; J2270; J2405; J3475; Q9967; G0379; J7030

== ENCOUNTER 2017-05-04 18:29 | Emergency (ER) | payer MEDICARE, OTHER ==
[~2017-05-04] VITALS: Ht 167.6 cm; Wt 101.2 kg
[~2017-05-04 18:29] MED LIST: AMIT25TA; ERGO500027; ESCITALOPRAM OX20 MG; FEXO-149; GLYB3TAB; LISI-338; METH4TAB2 PO; OMEP20CA9; SITA1TAB11; TEMA15CA PO; TRAM50TA PO
[2017-05-04 19:14] VITALS: BP 141/109
[2017-05-04 19:21] LABS: BASO # 0.1 x10^3/uL (0.0-0.2); BASO % 1 % (0-3); EOS # 0.1 x10^3/uL (0.0-0.7); EOS % 1 % (0-3); HEMATOCRIT 39.1 % (36.0-47.0); HEMOGLOBIN 13.3 g/dL (12.0-15.5); LYMPH # 2.7 x10^3/uL (1.0-4.8); LYMPH % 40 % (24-48); MEAN CORPUSCULAR HEMOGLOBIN 31 pg (25-35); MEAN CORPUSCULAR HGB CONC 34 g/dL (31-37); MEAN CORPUSCULAR VOLUME 91 fL (79-100); MONO # 0.5 x10^3/uL (0.0-1.1); MONO % 7 % (0-9); NEUT # 3.4 x10^3uL (1.8-7.7); NEUT % 50 % (31-73); PLATELET COUNT 278 x10^3/uL (140-400); RED BLOOD COUNT 4.32 x10^6/uL (3.50-5.40); RED CELL DISTRIBUTION WIDTH 14.4 % (11.5-14.5); WHITE BLOOD COUNT 6.7 x10^3/uL (4.0-11.0)
[2017-05-04 19:33] LABS: ALBUMIN 3.4 g/dL (3.4-5.0); ALBUMIN/GLOBULIN RATIO 0.8 (1.0-1.7); CALCIUM 9.2 mg/dL (8.5-10.1); CREATININE 1.2 mg/dL (0.6-1.0); GFR 53.7; POTASSIUM 3.7 mmol/L (3.5-5.1); TOTAL BILIRUBIN 0.2 mg/dL (0.2-1.0); TOTAL PROTEIN 7.6 g/dL (6.4-8.2)
--- NOTE | 2017-05-04 19:50 | PHYS DOC ---
Past History Past Medical History: Diabetes, Hypertension Past Surgical History: Cholecystectomy, Tubal ligation, Other Smoking: Non-smoker Alcohol Use: None Drug Use: None Adult General Chief Complaint Chief Complaint: NOSEBLEED HPI HPI Patient is a 72-year-old female who presents here today secondary to bleeding from her right naris that started approximately half an hour prior to arrival. Patient reports she's not had any significant problems in the past with bleeding. Patient denies any fevers shakes chills nausea vomiting diarrhea chest pain terns breath cough cold runny nose. Patient is not on any anticoagulant medications aspirin or Plavix. Patient denies any bruising before gums blood in her stool hemoptysis. Patient denies any shortness of breath headaches. Review of systems: Constitutional: Denies fever or chills Eyes: Denies change in visual acuity, redness, or eye pain HENT: Denies nasal congestion or sore throat All other systems were reviewed and found to be within normal limits, except as documented in this note. Physical exam Constitutional: Well developed, well nourished, no acute distress, non-toxic appearance. HENT: Normocephalic, atraumatic, bilateral external ears normal, oropharynx moist, no oral exudates, nose normal. Eyes: PERRLA, EOMI, conjunctiva normal, no discharge. Neck: Normal range of motion, no tenderness, supple, no stridor. Cardiovascular:Heart rate regular rhythm, Lungs & Thorax: Bilateral breath sounds clear to auscultation Abdomen: Bowel sounds normal, soft, no tenderness, no masses, no pulsatile masses. Skin: Warm, dry, no erythema, no rash. Back: No tenderness, no CVA tenderness. Extremities: No tenderness, no cyanosis, no clubbing, ROM intact, no edema. Neurologic: Alert and oriented X 3, normal motor function, normal sensory function, no focal deficits noted. Psychologic: Affect normal, judgement normal, mood normal. Assessment and plan: 1. Epistaxis. This is a 72-year-old female who presents here today with epistaxis from her naris. CLOTS were cleared with blowing her nose. Clamp was applied for approximately 10 minutes. I visualized her internal mucosa on her right naris which revealed a vessel that was visible and appeared to have just recently bled. Using silver nitrate the blood vessel was cauterized. Patient was given strict precautions regarding utilizing the clamps at home if bleeding should restart. Patient was instructed to utilize Mezlin cream and her naris over the next couple days. I do not feel that the patient would benefit at this time from the nasal packing as the patient has not had any further bleeding while the ER here now. Allergies Allergies Allergies Coded Allergies Type Severity Reaction Last Updated Verified acetic acid Allergy Intermediate 10/12/16 Yes bacitracin Allergy Intermediate 10/12/16 Yes carbamide peroxide Allergy Intermediate 10/12/16 Yes hydrocortisone Allergy Intermediate 10/12/16 Yes neomycin Allergy Intermediate 10/12/16 Yes polymyxin B Allergy Intermediate 10/12/16 Yes Current Patient Data Lab Results Laboratory Tests Test 05/04/17 19:00 White Blood Count 6.7 x10^3/uL (4.0-11.0) Red Blood Count 4.32 x10^6/uL (3.50-5.40) Hemoglobin 13.3 g/dL (12.0-15.5) Hematocrit 39.1 % (36.0-47.0) Mean Corpuscular Volume 91 fL (79-100) Mean Corpuscular Hemoglobin 31 pg (25-35) Mean Corpuscular Hemoglobin Concent 34 g/dL (31-37) Red Cell Distribution Width 14.4 % (11.5-14.5) Platelet Count 278 x10^3/uL (140-400) Neutrophils (%) (Auto) 50 % (31-73) Lymphocytes (%) (Auto) 40 % (24-48) Monocytes (%) (Auto) 7 % (0-9) Eosinophils (%) (Auto) 1 % (0-3) Basophils (%) (Auto) 1 % (0-3) Neutrophils # (Auto) 3.4 x10^3uL (1.8-7.7) Lymphocytes # (Auto) 2.7 x10^3/uL (1.0-4.8) Monocytes # (Auto) 0.5 x10^3/uL (0.0-1.1) Eosinophils # (Auto) 0.1 x10^3/uL (0.0-0.7) Basophils # (Auto) 0.1 x10^3/uL (0.0-0.2) Prothrombin Time 10.4 SEC (9.4-11.4) Prothrombin Time INR 1.0 (0.9-1.1) Sodium Level 137 mmol/L (136-145) Potassium Level 3.7 mmol/L (3.5-5.1) Chloride Level 103 mmol/L (98-107) Carbon Dioxide Level 25 mmol/L (21-32) Anion Gap 9 (6-14) Blood Urea Nitrogen 15 mg/dL (7-20) Creatinine 1.2 mg/dL (0.6-1.0) H Estimated GFR (Cockcroft-Gault) 53.7 BUN/Creatinine Ratio 13 (6-20) Glucose Level 349 mg/dL (70-99) H Calcium Level 9.2 mg/dL (8.5-10.1) Total Bilirubin 0.2 mg/dL (0.2-1.0) Aspartate Amino Transferase (AST) 42 U/L (15-37) H Alanine Aminotransferase (ALT) 68 U/L (14-59) H Alkaline Phosphatase 112 U/L (46-116) Total Protein 7.6 g/dL (6.4-8.2) Albumin 3.4 g/dL (3.4-5.0) Albumin/Globulin Ratio 0.8 (1.0-1.7) L EKG EKG [] Radiology/Procedures Radiology/Procedures [] Course & Med Decision Making Course & Med Decision Making Pertinent Labs and Imaging studies reviewed. (See chart for details) [] Dragon Disclaimer Dragon Disclaimer This electronic medical record was generated, in whole or in part, using a voice recognition dictation system. Departure Departure: Impression: Primary Impression: Epistaxis Disposition: 01 HOME, SELF-CARE Condition: STABLE Referrals: NON,STAFF (PCP) Patient Instructions: Nosebleed Scripts No Active Prescriptions or Reported Meds DEEPALI DE LEON MD May 04, 2017 19:50
== END 2017-05-04 20:24 | disposition home or self-care (01) ==
LOC: ER 18:29
DX: R04.0 Epistaxis (principal); E11.9 Type 2 diabetes mellitus without complications; I10 Essential (primary) hypertension; Z88.1 Allergy status to other antibiotic agents; Z88.8 Allergy status to other drugs, medicaments and biological substances
CPT/HCPCS: 30901; 36415; 80053; 85025; 85610; 99284-25

== ENCOUNTER 2018-11-20 00:11 | Emergency (ER) | payer MEDICARE, OTHER ==
[~2018-11-20] VITALS: Ht 165.1 cm; Wt 101.5 kg
[~2018-11-20 00:11] MED LIST changes: -FEXO-149; +[UNRECOGNIZED DRUG - CODE]
[2018-11-20] MEDS ORDERED: MORPHINE SULFATE 2 MG/ML DISP.SYRIN. IV/SQ PRN (00:45)
[2018-11-20] MEDS ORDERED: MORPHINE SULFATE 4 MG/ML DISP.SYRIN. ONE (00:45)
[2018-11-20 00:47] LABS: BASO % 1 % (0-3); EOS # 0.1 x10^3/uL (0.0-0.7); EOS % 1 % (0-3); HEMATOCRIT 39.4 % (36.0-47.0); HEMOGLOBIN 12.8 g/dL (12.0-15.5); LYMPH # 2.4 x10^3/uL (1.0-4.8); LYMPH % 34 % (24-48); MEAN CORPUSCULAR HEMOGLOBIN 29 pg (25-35); MEAN CORPUSCULAR HGB CONC 33 g/dL (31-37); MEAN CORPUSCULAR VOLUME 90 fL (79-100); MONO # 0.5 x10^3/uL (0.0-1.1); MONO % 7 % (0-9); NEUT % 57 % (31-73); PLATELET COUNT 265 x10^3/uL (140-400); RED BLOOD COUNT 4.36 x10^6/uL (3.50-5.40); RED CELL DISTRIBUTION WIDTH 14.8 % (11.5-14.5)
[2018-11-20] MEDS: MORPHINE SULFATE 4 MG/ML DISP.SYRIN. IV/SQ PRN ×2 (00:50→01:33)
[2018-11-20] MEDS ORDERED: IV NORMAL SALINE 1,000ML 1,000 ML IV SCH (01:00)
[2018-11-20] MEDS ORDERED: ASPIRIN 81 MG TAB.CHEW PO ONE (01:00)
[2018-11-20 01:05] LABS: ALBUMIN 3.5 g/dL (3.4-5.0); CALCIUM 9.5 mg/dL (8.5-10.1); GFR 66.1; MAGNESIUM 1.6 mg/dL (1.8-2.4); POTASSIUM 4.2 mmol/L (3.5-5.1); TOTAL BILIRUBIN 0.2 mg/dL (0.2-1.0); TOTAL PROTEIN 6.9 g/dL (6.4-8.2)
[2018-11-20 02:01] VITALS: BP 182/81
[2018-11-20] MEDS ORDERED: PRED50TA PO (02:07)
--- NOTE | 2018-11-20 02:08 | PHYS DOC ---
Past History Past Medical History: Diabetes, Hypertension Past Surgical History: Cholecystectomy, Tubal ligation, Other Smoking: Non-smoker Alcohol Use: Occasionally Drug Use: None Adult General Chief Complaint Chief Complaint: CHEST PAIN HPI HPI Patient is a 73-year-old female who presents with complaint of bilateral chest discomfort as well as right shoulder and upper back pain that has been worsening over the last 3 days. Patient admits to chronic history of similar symptoms over at least the last few years. She states that she came in tonight because the p ain got much worse. She states the pain is worsened with movement, palpation and with deep breathing. She indicates the pain is almost like a charley horse at times and sometimes sharp and stabbing. She states the worst of the pain is in her right lateral chest as well as throughout her entire right shoulder. She rates pain to be a 10 out of 10. She states that nothing is improving the pain. She does indicate that she has a history of similar episode several years back is well and she had some kind of an injection that she states had been like a milky color and then she didn't have any further problems for a few years.[] Review of Systems Review of Systems Constitutional: Denies fever or chills [] Respiratory: Denies cough or shortness of breath [] Cardiovascular: No additional information not addressed in HPI [] GI: Denies abdominal pain, nausea, vomiting or diarrhea [] Musculoskeletal: Complains of right shoulder and upper back pain [] Integument: Denies rash or skin lesions [] All other systems were reviewed and found to be within normal limits, except as documented in this note. Current Medications Current Medications Current Medications Medications (Trade) Dose Ordered Sig/Magda Start Time Stop Time Status Last Admin Dose Admin Aspirin (Children'S Aspirin) 324 mg 1X ONCE 11/20/18 01:00 11/20/18 01:01 DC 11/20/18 00:50 324 MG Morphine Sulfate (Morphine 2mg Syringe) 2 mg PRN Q15MIN PRN 11/20/18 00:45 11/20/18 00:47 DC Morphine Sulfate (Morphine 4mg Syringe) 2 mg PRN Q15MIN PRN 11/20/18 00:47 11/21/18 00:44 11/20/18 01:33 2 MG Sodium Chloride 1,000 ml @ 100 mls/hr Q10H 11/20/18 01:00 11/20/18 10:59 11/20/18 01:33 100 MLS/HR Allergies Allergies Allergies Coded Allergies Type Severity Reaction Last Updated Verified acetic acid Allergy Intermediate 10/12/16 Yes bacitracin Allergy Intermediate 10/12/16 Yes carbamide peroxide Allergy Intermediate 10/12/16 Yes hydrocortisone Allergy Intermediate 10/12/16 Yes neomycin Allergy Intermediate 10/12/16 Yes polymyxin B Allergy Intermediate 10/12/16 Yes Physical Exam Physical Exam Constitutional: Well developed, well nourished, no acute distress, non-toxic appearance. [] HENT: Normocephalic, atraumatic, bilateral external ears normal, oropharynx moist, no oral exudates, nose normal. [] Eyes: PERRLA, EOMI, conjunctiva normal, no discharge. [] Neck: Normal range of motion, no tenderness, supple, no stridor. [] Cardiovascular: Regular rate and rhythm. There is reproducible chest wall te nderness along the right sternal border[] Lungs & Thorax: Bilateral breath sounds clear to auscultation [] Abdomen: Bowel sounds normal, soft, no tenderness. [] Skin: Warm, dry, no erythema, no rash. [] Extremities: No tenderness, no cyanosis, no clubbing, ROM intact. [] Neurologic: Alert and oriented X 3, no focal deficits noted. [] Current Patient Data Vital Signs Vital Signs Date Time Temp Pulse Resp B/P (MAP) Pulse Ox O2 Delivery O2 Flow Rate FiO2 11/20/18 00:11 98.7 80 28 100 Room Air Lab Results Laboratory Tests Test 11/20/18 00:27 White Blood Count 7.0 x10^3/uL (4.0-11.0) Red Blood Count 4.36 x10^6/uL (3.50-5.40) Hemoglobin 12.8 g/dL (12.0-15.5) Hematocrit 39.4 % (36.0-47.0) Mean Corpuscular Volume 90 fL (79-100) Mean Corpuscular Hemoglobin 29 pg (25-35) Mean Corpuscular Hemoglobin Concent 33 g/dL (31-37) Red Cell Distribution Width 14.8 % (11.5-14.5) H Platelet Count 265 x10^3/uL (140-400) Neutrophils (%) (Auto) 57 % (31-73) Lymphocytes (%) (Auto) 34 % (24-48) Monocytes (%) (Auto) 7 % (0-9) Eosinophils (%) (Auto) 1 % (0-3) Basophils (%) (Auto) 1 % (0-3) Neutrophils # (Auto) 4.0 x10^3uL (1.8-7.7) Lymphocytes # (Auto) 2.4 x10^3/uL (1.0-4.8) Monocytes # (Auto) 0.5 x10^3/uL (0.0-1.1) Eosinophils # (Auto) 0.1 x10^3/uL (0.0-0.7) Basophils # (Auto) 0.0 x10^3/uL (0.0-0.2) Sodium Level 141 mmol/L (136-145) Potassium Level 4.2 mmol/L (3.5-5.1) Chloride Level 104 mmol/L (98-107) Carbon Dioxide Level 25 mmol/L (21-32) Anion Gap 12 (6-14) Blood Urea Nitrogen 16 mg/dL (7-20) Creatinine 1.0 mg/dL (0.6-1.0) Estimated GFR (Cockcroft-Gault) 66.1 BUN/Creatinine Ratio 16 (6-20) Glucose Level 179 mg/dL (70-99) H Calcium Level 9.5 mg/dL (8.5-10.1) Magnesium Level 1.6 mg/dL (1.8-2.4) L Total Bilirubin 0.2 mg/dL (0.2-1.0) Aspartate Amino Transferase (AST) 20 U/L (15-37) Alanine Aminotransferase (ALT) 33 U/L (14-59) Alkaline Phosphatase 96 U/L (46-116) Troponin I Quantitative < 0.017 ng/mL (0-0.055) TB-Bdy-R-Type Natriuretic Peptide 56 pg/mL (0-124) Total Protein 6.9 g/dL (6.4-8.2) Albumin 3.5 g/dL (3.4-5.0) Albumin/Globulin Ratio 1.0 (1.0-1.7) EKG EKG EKG demonstrates normal sinus rhythm[] Radiology/Procedures Radiology/Procedures [] Impressions: Chest x-ray demonstrates no acute process. Course & Med Decision Making Course & Med Decision Making Pertinent Labs and Imaging studies reviewed. (See chart for details) [] Dragon Disclaimer Dragon Disclaimer This electronic medical record was generated, in whole or in part, using a voice recognition dictation system. Departure Departure: Impression: Primary Impression: Musculoskeletal chest pain Additional Impression: Arthralgia Disposition: HOME, SELF-CARE Condition: STABLE Referrals: ARIEL VARELA DO (PCP) Patient Instructions: Arthralgia, Chest Wall Pain Scripts Prednisone (PREDNISONE) 50 Mg Tablet 1 TAB PO DAILY for inflammation, #5 TAB Prov: NIDA HOLGUIN Jr., DO 11/20/18 Problem Qualifiers Additional Impression: Arthralgia Joint pain location: shoulder Laterality: right Qualified Codes: M25.511 - Pain in right shoulder NIDA HOLGUIN Jr., DO Nov 20, 2018 02:08
--- NOTE | 2018-11-20 08:03 | EKG ---
[address] [address] Test Date: 2018-11-20 Test Time: 00:29:47 Pat Name: CLARE ROSARIO Department: Room: Gender: F Branch Officer: NUZHAT : 1945 Requested By: NIDA HOLGUIN Order Number: [id number] Reading MD: Measurements Intervals [place] Rate: 80 P: 34 AL: 146 QRS: -20 QRSD: 74 T: 25 QT: 428 QTc: 498 Interpretive Statements SINUS RHYTHM LEFTWARD AXIS QRS(T) CONTOUR ABNORMALITY CONSIDER ANTEROLATERAL MYOCARDIAL DAMAGE PROLONGED QT POSSIBLY ABNORMAL ECG RI6.01 No previous ECG available for comparison
--- NOTE | 2018-11-20 08:19 | RAD ---
EXAM: CHEST 1 VIEW. HISTORY: Chest pain. COMPARISON: 10/12/2016. FINDINGS: A frontal view of the chest is obtained. There are no confluent infiltrates. There is no pneumothorax or pleural effusion. The heart is not enlarged. IMPRESSION: 1. No confluent infiltrates. Electronically signed by: Leigh Wu MD (11/20/2018 8:16 AM) [facility]
== END 2018-11-20 02:19 | disposition home or self-care (01) ==
LOC: ER 00:11
DX: R07.89 Other chest pain (principal); M25.511 Pain in right shoulder; M54.6 Pain in thoracic spine; E11.9 Type 2 diabetes mellitus without complications; I10 Essential (primary) hypertension; Z88.1 Allergy status to other antibiotic agents; Z88.8 Allergy status to other drugs, medicaments and biological substances
CPT/HCPCS: 36415; 71045; 80053; 83735; 83880; 84484; 85025; 93005; 96374; 96376; 99285; J2270; J7030

== ENCOUNTER 2021-01-04 11:08 | Observation (INO) | payer MEDICARE, OTHER ==
[~2021-01-04] VITALS: Ht 167.6 cm; Wt 112.0 kg
[~2021-01-04 11:08] MED LIST changes: -LISI-338; +LISI-517; +OMEP20CA16; -OMEP20CA9; +PRED50TA PO
[2021-01-04] MEDS ORDERED: DEXTROSE 50% 25 GM / 50ML DISP.SYRIN. IV ONE ×3 (11:15→14:15)
[2021-01-04 11:33] LABS: BASO # 0.1 x10^3/uL (0.0-0.2); BASO % 1 % (0-3); EOS # 0.1 x10^3/uL (0.0-0.7); EOS % 1 % (0-3); HEMATOCRIT 39.5 % (36.0-47.0); HEMOGLOBIN 12.8 g/dL (12.0-15.5); LYMPH # 3.5 x10^3/uL (1.0-4.8); LYMPH % 36 % (24-48); MEAN CORPUSCULAR HEMOGLOBIN 31 pg (25-35); MEAN CORPUSCULAR HGB CONC 32 g/dL (31-37); MEAN CORPUSCULAR VOLUME 94 fL (79-100); MONO # 0.7 x10^3/uL (0.0-1.1); MONO % 7 % (0-9); NEUT # 5.4 x10^3uL (1.8-7.7); NEUT % 55 % (31-73); PLATELET COUNT 231 x10^3/uL (140-400); RED CELL DISTRIBUTION WIDTH 15.9 % (11.5-14.5); WHITE BLOOD COUNT 9.8 x10^3/uL (4.0-11.0)
[2021-01-04 11:47] LABS: CALCIUM 9.2 mg/dL (8.5-10.1); GFR 65.8; POTASSIUM 4.3 mmol/L (3.5-5.1)
--- NOTE | 2021-01-04 11:49 | RAD ---
XR CHEST 1V History: Reason: low glucose / Spl. Instructions: / History: Comparison: November 20, 2018 Findings: Patchy right medial basilar opacity. No pleural effusion. No pneumothorax. Unchanged heart size. Impression: 1. Patchy right medial basilar opacity, may represent atelectasis or developing consolidation. If pe rsistent clinical concern, recommend follow-up. Electronically signed by: Juan Scott DO (01/04/2021 11:47 AM) [id number]
[2021-01-04 12:00] LABS: ALBUMIN 3.3 g/dL (3.4-5.0); ALBUMIN/GLOBULIN RATIO 0.8 (1.0-1.7); TOTAL BILIRUBIN 0.4 mg/dL (0.2-1.0); TOTAL PROTEIN 7.4 g/dL (6.4-8.2)
--- NOTE | 2021-01-04 12:56 | RAD ---
PQRS Compliance Statement: One or more of the following individualized dose reduction techniques were utilized for this examinat ion: 1. Automated exposure control 2. Adjustment of the mA and/or kV according to patient size 3. Use of iterative reconstruction technique CT head without contrast 01/04/2021 11:44 AM INDICATION: Left arm tingling COMPARISON: None available TECHNIQUE: Multiple axial CT images of the head were obtained from skull base through the vertex with out intravenous contrast. FINDINGS: Head: Ventricles, sulci and basal cisterns are within normal limits. There is no hydrocephalus. Peterson-white matter differentiation is normal. There is no acute intracranial hemorrhage. There is no mass, mass e ffect or midline shift. Posterior fossa is normal in appearance. Visualized portions of the orbits are normal. Paranasal sinuses are well aerated. Mastoid air cells a re well aerated. Scalp and calvaria are normal. IMPRESSION: No acute intracranial hemorrhage. Electronically signed by: Meera Billy MD (01/04/2021 12:54 PM) [id number]
--- NOTE | 2021-01-04 12:59 | PHYS DOC ---
Past History Past Medical History: Diabetes, Hypertension Past Surgical History: Cholecystectomy, Tubal ligation, Other Smoking: Non-smoker Alcohol Use: None Drug Use: None General Adult EDM: Chief Complaint: BLOOD SUGAR PROBLEM HPI: HPI: 75-year-old female past medical history of non-insulin dependent diabetes and HTN, presents to the ED with complaints of sudden onset blurry vision with tingling in the tongue and mouth. Daughter called 911 after patient was swatting at her when attempting to check her glucose. Reports she is on Metformin. EMS glucose was in the 50s. Patient reports has been up since 2 AM and ate a burrito. Lives with daughter although daughter did not see what pt ate today. Daughter heard pt yelling for her and found pt lying down in her bed - pt was diaphoretic. Reports patient did not fall or hit her head. Pt not on any insulin per history. Review of Systems: Review of Systems: Constitutional: Denies fever or chills Eyes: Denies complete vision loss or eye discharge HENT: Denies nasal congestion or sore throat Respiratory: Denies cough or shortness of breath Cardiovascular: Denies chest pain or edema GI: Denies nausea, vomiting, : Denies dysuria or hematuria Musculoskeletal: Denies back pain or joint pain Integument: Denies rash or diaphoresis Neurologic: Denies headache, or neck pain Endocrine: Denies polyuria or polydipsia Lymphatic: Denies swollen glands Psychiatric: Denies depression or anxiety Current Medications: Current Meds: Current Medications Medications (Trade) Dose Ordered Sig/Magda Start Time Stop Time Status Last Admin Dose Admin Dextrose (Dextrose 50%-Water Syringe) 25 gm 1X ONCE 01/04/21 11:15 01/04/21 11:30 DC 01/04/21 11:15 25 GM Allergies: Allergies: Allergies Coded Allergies Type Severity Reaction Last Updated Verified acetic acid Allergy Intermediate 01/04/21 Yes bacitracin Allergy Intermediate 01/04/21 Yes carbamide peroxide Allergy Intermediate 01/04/21 Yes hydrocortisone Allergy Intermediate 01/04/21 Yes neomycin Allergy Intermediate 01/04/21 Yes polymyxin B Allergy Intermediate 01/04/21 Yes Physical Exam: PE: Constitutional: no acute distress, non-toxic/frail appearing HENT: Normocephalic, atraumatic, no signs of head trauma Eyes: EOMI, conjunctiva normal, no discharge. Neck: Normal range of motion, supple, no midline neck pain Cardiovascular: S1/2 present, regular rhythm Lungs & Thorax: Speaking in full sentences, bilateral equal chest rise, no tachypnea or increased work of breathing Abdomen: soft, no tenderness, Skin: Warm, dry, Back: No midline step offs or tenderness, no CVA tenderness. [] Extremities: No tenderness, no cyanosis, Neurologic: NIHSS 0, CN 2- 12intact, Alert and oriented X 3, no focal deficits noted, 5/5 UE/LE ms bl Psychologic: Affect normal, judgement normal, mood normal. [] Current Patient Data: Labs: Laboratory Tests Test 01/04/21 11:13 01/04/21 11:20 01/04/21 11:43 Glucose (Fingerstick) 48 mg/dL (70-99) L 155 mg/dL (70-99) H White Blood Count 9.8 x10^3/uL (4.0-11.0) Red Blood Count 4.20 x10^6/uL (3.50-5.40) Hemoglobin 12.8 g/dL (12.0-15.5) Hematocrit 39.5 % (36.0-47.0) Mean Corpuscular Volume 94 fL (79-100) Mean Corpuscular Hemoglobin 31 pg (25-35) Mean Corpuscular Hemoglobin Concent 32 g/dL (31-37) Red Cell Distribution Width 15.9 % (11.5-14.5) H Platelet Count 231 x10^3/uL (140-400) Neutrophils (%) (Auto) 55 % (31-73) Lymphocytes (%) (Auto) 36 % (24-48) Monocytes (%) (Auto) 7 % (0-9) Eosinophils (%) (Auto) 1 % (0-3) Basophils (%) (Auto) 1 % (0-3) Neutrophils # (Auto) 5.4 x10^3uL (1.8-7.7) Lymphocytes # (Auto) 3.5 x10^3/uL (1.0-4.8) Monocytes # (Auto) 0.7 x10^3/uL (0.0-1.1) Eosinophils # (Auto) 0.1 x10^3/uL (0.0-0.7) Basophils # (Auto) 0.1 x10^3/uL (0.0-0.2) Sodium Level 145 mmol/L (136-145) Potassium Level 4.3 mmol/L (3.5-5.1) Chloride Level 107 mmol/L (98-107) Carbon Dioxide Level 24 mmol/L (21-32) Anion Gap 14 (6-14) Blood Urea Nitrogen 18 mg/dL (7-20) Creatinine 1.0 mg/dL (0.6-1.0) Estimated GFR (Cockcroft-Gault) 65.8 BUN/Creatinine Ratio 18 (6-20) Glucose Level 52 mg/dL (70-99) L Calcium Level 9.2 mg/dL (8.5-10.1) Total Bilirubin 0.4 mg/dL (0.2-1.0) Aspartate Amino Transferase (AST) 27 U/L (15-37) Alanine Aminotransferase (ALT) 27 U/L (14-59) Alkaline Phosphatase 94 U/L (46-116) Creatine Kinase 138 U/L (26-192) Troponin I Quantitative < 0.017 ng/mL (0-0.055) UR-Sjj-C-Type Natriuretic Peptide 277 pg/mL (0-124) H Total Protein 7.4 g/dL (6.4-8.2) Albumin 3.3 g/dL (3.4-5.0) L Albumin/Globulin Ratio 0.8 (1.0-1.7) L Lipase 379 U/L (73-393) Ethyl Alcohol Level < 10 mg/dL (0-10) Vital Signs: Vital Signs Date Time Temp Pulse Resp B/P (MAP) Pulse Ox O2 Delivery O2 Flow Rate FiO2 01/04/21 11:09 98.1 73 17 152/69 99 Room Air EKG: EKG: Sinus rhythm at 67 bpm, no axis deviation, normal intervals, no T wave inversions, no ST elevations or ST depressions Radiology/Procedures: Radiology/Procedures: IMAGING REPORT Signed PATIENT: CLARE ROSARIO ACCOUNT: [id number] : 1945 LOCATION: ER AGE: 75 SEX: F EXAM STATUS: REG ER ORD. PHYSICIAN: VOHS,RALF M DO REASON: low glucose PROCEDURE: PORTABLE CHEST 1V XR CHEST 1V History: Reason: low glucose / Spl. Instructions: / History: Comparison: November 20, 2018 Findings: Patchy right medial basilar opacity. No pleural effusion. No pneumothorax. Unchanged heart size. Impression: 1. Patchy right medial basilar opacity, may represent atelectasis or developing consolidation. If persistent clinical concern, recommend follow-up. Electronically signed by: Juan Scott DO (01/04/2021 11:47 AM) [id number] DICTATED AND SIGNED BY: JUAN SCOTT DO DATE: 01/04/21 1145 CC: ARIEL VARELA DO; RALF VAZQUEZ DO ~MTH0 0 IMAGING REPORT Signed PATIENT: CLARE ROSARIO ACCOUNT: [id number] : 1945 LOCATION: ER AGE: 75 SEX: F EXAM STATUS: REG ER ORD. PHYSICIAN: RALF VAZQUEZ DO REASON: left arm tingling PROCEDURE: CT HEAD WO CONTRAST PQRS Compliance Statement: One or more of the following individualized dose reduction techniques were utilized for this examination: 1. Automated exposure control 2. Adjustment of the mA and/or kV according to patient size 3. Use of iterative reconstruction technique CT head without contrast 01/04/2021 11:44 AM INDICATION: Left arm tingling COMPARISON: None available TECHNIQUE: Multiple axial CT images of the head were obtained from skull base through the vertex without intravenous contrast. FINDINGS: Head: Ventricles, sulci and basal cisterns are within normal limits. There is no hydrocephalus. Peterson-white matter differentiation is normal. There is no acute intracranial hemorrhage. There is no mass, mass effect or midline shift. Posterior fossa is normal in appearance. Visualized portions of the orbits are normal. Paranasal sinuses are well aerated. Mastoid air cells are well aerated. Scalp and calvaria are normal. IMPRESSION: No acute intracranial hemorrhage. Electronically signed by: Quentin King MD (01/04/2021 12:54 PM) [id number] DICTATED AND SIGNED BY: QUENTIN KING MD DATE: 01/04/21 1248 CC: ARIEL VARELA DO; RALF VAZQUEZ DO ~MTH0 0 Heart Score: C/O Chest Pain: No Risk Factors: Risk Factors: DM, Current or recent (<one month) smoker, HTN, HLP, family history of CAD, obesity. Risk Scores: Score 0 - 3: 2.5% MACE over next 6 weeks - Discharge Home Score 4 - 6: 20.3% MACE over next 6 weeks - Admit for Clinical Observation Score 7 - 10: 72.7% MACE over next 6 weeks - Early Invasive Strategies Course & Med Decision Making: Course & Med Decision Making Pertinent Labs and Imaging studies reviewed. (See chart for details) Upon reevaluation, repeat glucose in the 50s. Concern for persistent hypoglycemia, suspect very poor oral intake. Patient and daughter are both very poor historians-unclear home medication list. Will admit for further medical management. Patient stable at time of admission and agrees with this plan. I have spoken with the patient and/or caregivers. I have explained the patient's condition, diagnosis and treatment plan based on the information available to me at this time. I have answered the patient's and/or caregivers questions and answered any concerns. The patient and/or caregivers have as good an understanding of the patient's diagnosis, condition and treatment plan as can be expected at this point. The patient has been stabilized within the capability of the emergency department. The patient will be transported for further care and management or will be moved to an observation or inpatient service. I have communicated with the staff or medical practitioner taking over this patient's care. Emeka Disclaimer: Emeka Disclaimer: This electronic medical record was generated, in whole or in part, using a voice recognition dictation system. Departure Departure: Impression: Primary Impression: Hypoglycemia Disposition: ADMITTED INPATIENT Admitting Physician: Vaibhav Dumont Condition: GUARDED Referrals: ARIEL VARELA DO (PCP) RALF VAZQUEZ DO Jan 04, 2021 12:59
[2021-01-04] MEDS ORDERED: IV DEXTROSE 5% 1,000 ML IV ONE (14:15)
[2021-01-04 15:44] VITALS: BP 158/49
--- NOTE | 2021-01-04 17:24 | HP ---
ADMIT DATE: 01/04/2021 ATTENDING PHYSICIAN: Dr. Dumont. CHIEF COMPLAINT: Blurry vision and tingling and the low blood sugar. HISTORY OF PRESENT ILLNESS: The patient is a pleasant 75-year-old female with non-insulin dependent diabetes. Recently, she was started on metformin. She was taking her medicine. She developed generalized weakness, blurred vision, tingling and had significant hypoglycemia, blood sugar 52. She was given dextrose, came up to 150 and then dropped back down to under 60. She was given several amps of glucose. She is admitted then with symptomatic hypoglycemia and monitoring of blood sugars. She found the patient lying down on the floor. She was diaphoretic. She did not fall or lose consciousness. PAST MEDICAL HISTORY: Significant for essential hypertension, diabetes, tubal ligation, cholecystectomy, degenerative arthritis and a recent epidural steroid injection of the cervical spine. CURRENT MEDICATIONS: Reviewed. She was taking metformin 1000 mg b.i.d. Recent prednisone was administered. She is off of that right now. ALLERGIES: SHE HAS ALLERGIES TO BACITRACIN, PEROXIDE, HYDROCORTISONE, NEOMYCIN, AND POLYMYXIN. SOCIAL HISTORY: She is a nonsmoker, nondrinker. She does not use any recreational drug use. FAMILY HISTORY: Mom of Alzheimer's dementia at age 94. Father of prostate cancer at age 80. REVIEW OF SYSTEMS: Significant for the problems that brought her to the ED. No recent COVID exposure. All other systems reviewed and turned to be negative. PHYSICAL EXAMINATION: GENERAL: When I saw her, this is a pleasant elderly female. VITAL SIGNS: Initial vital signs showed a blood pressure 165/61, pulse is 67 and regular. She was afebrile, oxygen saturation 99% on room air. HEENT: Head is without trauma. Pupils are reactive. Sclerae nonicteric. The oropharynx is clear. NECK: Supple, no bruits identified. LUNGS: Otherwise, clear to auscultation. CARDIOVASCULAR: Showed regular heart tones. No gallops. ABDOMEN: Soft. EXTREMITIES: Without edema. NEUROLOGIC: Focally intact. Speech is fluent. SKIN: Warm and dry. PERTINENT LABORATORY STUDIES: Hemoglobin 12.8 g/dL with a white count of 9800. Sugars were drawn, was up to 155, then dropped to 63 mg/dL and 59. ASSESSMENT: 1. A 75-year-old female with symptomatic hypoglycemia. 2. Long-term effects of metformin, which is still in her system causing hypoglycemia. 3. Adult onset diabetes. 4. Recent degenerative arthritis. 5. Obesity. 6. Essential hypertension, currently normotensive. PLAN: 1. Admit to the ICU. 2. Dextrose infusion. 3. Frequent Accu-Cheks. 4. Metformin has been held for now. 5. Diet as tolerated. MARIA ELENA DR: Alberto TID: [id number] CC: ARIEL VARELA DO
[2021-01-04] MEDS ORDERED: CETI10TA16 PO (17:43)
[2021-01-04] MEDS ORDERED: ESCI20TA8 PO (17:43)
[2021-01-04] MEDS ORDERED: TIZA-58 PO (17:43)
[2021-01-04] MEDS ORDERED: GABA-586 PO (17:43)
[2021-01-04] MEDS ORDERED: GLYB3TAB3 PO (17:43)
[2021-01-04] MEDS ORDERED: CELE-20 PO (17:43)
[2021-01-04] MEDS ORDERED: ATOR40TA59 PO (17:43)
[2021-01-04] MEDS ORDERED: LISI-517 PO (17:43)
[2021-01-04] MEDS ORDERED: SITA1TAB7 PO (17:43)
[2021-01-04] MEDS ORDERED: CHOL10008 PO (17:43)
[2021-01-04] MEDS ORDERED: DULA1.5P SQ (17:43)
[2021-01-04] MEDS ORDERED: PIOG15TA63 PO (17:43)
[2021-01-04 19:06] VITALS: BP 142/62
[2021-01-04] MEDS: tiZANidine 4 MG TABLET. PO SCH (20:30)
[2021-01-04 23:14] VITALS: BP 143/53
[2021-01-04 23:25] LABS: BILIRUBIN,URINE NEG (NEG); CLARITY,URINE CLEAR; COLOR,URINE YELLOW; GLUCOSE,URINE NEG (NEG); NITRITE,URINE NEG (NEG); UROBILINOGEN,URINE 0.2 mg/dL (0.2 mg/dL)
[2021-01-04 23:26] LABS: BACTERIA,URINE FEW /HPF (0-FEW); BARBITURATES NEG (NEG); BENZODIAZEPINES NEG (NEG); CANNABINOIDS NEG (NEG); COCAINE NEG (NEG); METHADONE NEG (NEG); OPIATES NEG (NEG); PHENCYCLIDINE NEG (NEG); RBC,URINE 0 /HPF (0-2)
[2021-01-04 23:27] LABS: AMPHETAMINE/METHAMPHETAMINE NEG (NEG)
[2021-01-05 02:59] VITALS: BP 156/66
--- NOTE | 2021-01-05 07:05 | EKG ---
[address] [address] Test Date: 2021-01-04 Test Time: 11:26:53 Pat Name: CLARE ROSARIO Department: Room: [facility] Gender: F [employer] Technician: NAZARIO : 1945 Requested By: RALF VAZQUEZ Order Number: [id number] Reading MD: Measurements Intervals [place] Rate: 67 P: 0 VT: 136 QRS: 62 QRSD: 78 T: 15 QT: 410 QTc: 436 Interpretive Statements SINUS RHYTHM NORMAL ECG RI6.02 No previous ECG available for comparison
[2021-01-05] MEDS: tiZANidine 4 MG TABLET. PO SCH (08:01)
[2021-01-05 08:15] VITALS: BP 165/75
--- NOTE | 2021-01-05 08:55 | DS ---
DATE OF DISCHARGE: 01/05/2021 ATTENDING PHYSICIAN: Dr. Dumont. FINAL DISCHARGE DIAGNOSES: 1. Symptomatic hypoglycemia. 2. Type 2 diabetes. 3. Degenerative arthritis. 4. Essential hypertension. 5. Morbid obesity. HISTORY AND PHYSICAL: This is a pleasant 75-year-old female who has type 2 diabetes. She was given several oral hypoglycemics, which has decreased clearance on stick around for a long time. She was symptomatic with hyperglycemia. Blood sugar was 52. We had a hard time keeping it up in the ED, she was given 50% dextrose. She was started on IV hydration and admitted overnight for treatment. PHYSICAL EXAMINATION: Please see my dictated note. PERTINENT LABORATORY AND X-RAY STUDIES: Admission blood sugar was 52 mg/dL, repeated was up to 103, down to 66, 73 and up to 165 mg/dL. CBC: White count was within normal range. Chemistry is unremarkable. COURSE IN HOSPITAL: The patient was admitted. She was started on dextrose solution with frequent Accu-Cheks. Sugars came up. Diet was advanced and she did well. By the second hospital day, her blood sugars were adequate. She was alert, talking back to baseline. She wanted to go home. I felt this is reasonable. For now, I recommend that she continue her scheduled Lipitor, cetirizine, vitamin D3, Lexapro 20 mg, lisinopril and tizanidine p.r.n. For now, I have asked her to stop the Celebrex because of GI side effects, Neurontin because of confusion and her oral hypoglycemics including glyburide, Actos, Januvia, and metformin. I suggested that she see her primary care physician in 1 week's time to recheck blood sugar and to restart any lower dose oral hypoglycemics as needed. The patient was then discharged from our hospital in stable condition with explicit instructions and followup care. Total discharge time spent [address]: Alberto TID: [id number] CC: ARIEL VARELA DO
== END 2021-01-05 08:55 | disposition home or self-care (01) ==
LOC: ER 11:08 → ICU 13:53 → INTOOBSV 13:53 → ER 15:10
PROVIDERS: ADMIT Hospitalist; ATTEND Hospitalist
DX: E11.649 Type 2 diabetes mellitus with hypoglycemia without coma (principal); E11.65 Type 2 diabetes mellitus with hyperglycemia; M19.90 Unspecified osteoarthritis, unspecified site; I10 Essential (primary) hypertension; E66.01 Morbid (severe) obesity due to excess calories; Z79.84 Long term (current) use of oral hypoglycemic drugs; Z79.899 Other long term (current) drug therapy
CPT/HCPCS: 36415; 70450; 71045; 80053; 80307; 81001; 82550; 82947; 83690; 83880; 84484; 85025; 87086; 93005; 96361; 96374; 96376; 99285; G0378; G0480; 96360; G0379

== ENCOUNTER 2021-03-02 13:28 | Emergency (ER) | payer MEDICARE, OTHER ==
[~2021-03-02] VITALS: Ht 167.6 cm; Wt 112.0 kg
[~2021-03-02 13:28] MED LIST changes: +ATOR40TA59 PO; +CELE-20 PO; +CETI10TA16 PO; +CHOL10008 PO; +DULA1.5P SQ; +ESCI20TA8 PO; +GABA-586 PO; +GLYB3TAB3 PO; +LISI-517 PO; +PIOG15TA63 PO; +SITA1TAB7 PO; +TIZA-58 PO
[2021-03-02 13:57] VITALS: BP 165/75
[2021-03-02] MEDS ORDERED: IBUPROFEN 800 MG TABLET. PO ONE (15:45)
--- NOTE | 2021-03-02 16:23 | PHYS DOC ---
Past History Past Medical History: Anxiety, Diabetes (removed from all rx in 12/2020), Hypertension Additional Past Medical Histor: DDD, fatty liver Past Surgical History: Cholecystectomy, Tubal ligation, Other Additional Past Surgical Histo: tumor excision left knee, ganglion cyst left wrist, foot Smoking: Non-smoker Alcohol Use: None Drug Use: None General Adult EDM: Chief Complaint: HYPERGLYCEMIA Problems: (1) Hyperglycemia (2) Fatigue (3) Behavioral change HPI: HPI: Patient is a 75 year old female with history of diabetes, hypertension and nonalcoholic fatty liver disease who presents with 4-day complaint of fatigue with an increased blood sugar read yesterday. Patient's caregiver at bedside states that for the past 3 to 4 days, the patient has been more tired and "not herself." Patient states that she has felt hungry, but is too fatigued to eat a full meal. Patient's caregiver states that yesterday after she ate breakfast around 9 AM her behavior was "strange," so she took a blood sugar reading. The random blood glucose was 356 around noon, and lowered to 230 by the afternoon. At that time, the patient was still not feeling well and her blood pressure was 190/74 which decreased in the next couple of hours to 156/78. Today, the patient had an appointment with her primary care physician at 1440, but was unable to attend due to her fatigue. She did get labs drawn this morning but could not produce a urine sample. Her current complaints are headache 8/10, right shoulder pain without trauma, nausea and fatigue. Patient reports urinary frequency, but denies hematuria and dysuria. She denies fall, emesis, or change s in bowel movements. Review of Systems: Review of Systems: Constitutional: Denies fever or chills Respiratory: Denies cough or shortness of breath Cardiovascular: Denies chest pain or edema GI: See HPI : See HPI Musculoskeletal: See HPI Integument: Denies rash Neurologic: Reports headache. Denies focal weakness or sensory changes Endocrine: Reports elevated glucose reading at home, denies polydipsia. Current Medications: Current Meds: Current Medications Medications (Trade) Dose Ordered Sig/Magda Start Time Stop Time Status Last Admin Dose Admin Ibuprofen (Motrin) 800 mg 1X ONCE 03/02/21 15:45 03/02/21 15:46 DC Allergies: Allergies: Allergies Coded Allergies Type Severity Reaction Last Updated Verified acetic acid Allergy Intermediate 01/04/21 Yes bacitracin Allergy Intermediate 01/04/21 Yes carbamide peroxide Allergy Intermediate 01/04/21 Yes hydrocortisone Allergy Intermediate 01/04/21 Yes neomycin Allergy Intermediate 01/04/21 Yes polymyxin B Allergy Intermediate 01/04/21 Yes Physical Exam: PE: Constitutional: Well developed, well nourished, no acute distress, non-toxic a ppearance. Cardiovascular:Heart rate regular rhythm, no murmur. Lungs & Thorax: Bilateral breath sounds clear to auscultation. Abdomen: Protuberant, bowel sounds normal, soft, no tenderness, no masses, no pulsatile masses. Skin: Warm, dry, no erythema, no rash. Extremities: No tenderness, no cyanosis, no clubbing, ROM intact, no edema. Neurologic: Alert and oriented X 3, normal motor function, normal sensory function, no focal deficits noted. Psychologic: Affect normal, judgement normal, mood normal. Current Patient Data: Labs: Laboratory Tests Test 03/02/21 13:47 03/02/21 16:00 03/02/21 16:15 03/02/21 17:11 Glucose (Fingerstick) 230 mg/dL (70-99) White Blood Count 7.4 x10^3/uL (4.0-11.0) Red Blood Count 4.24 x10^6/uL (3.50-5.40) Hemoglobin 12.8 g/dL (12.0-15.5) Hematocrit 39.2 % (36.0-47.0) Mean Corpuscular Volume 93 fL (79-100) Mean Corpuscular Hemoglobin 30 pg (25-35) Mean Corpuscular Hemoglobin Concent 33 g/dL (31-37) Red Cell Distribution Width 14.9 % (11.5-14.5) Platelet Count 250 x10^3/uL (140-400) Neutrophils (%) (Auto) 54 % (31-73) Lymphocytes (%) (Auto) 35 % (24-48) Monocytes (%) (Auto) 8 % (0-9) Eosinophils (%) (Auto) 2 % (0-3) Basophils (%) (Auto) 2 % (0-3) Neutrophils # (Auto) 4.0 x10^3uL (1.8-7.7) Lymphocytes # (Auto) 2.6 x10^3/uL (1.0-4.8) Monocytes # (Auto) 0.6 x10^3/uL (0.0-1.1) Eosinophils # (Auto) 0.1 x10^3/uL (0.0-0.7) Basophils # (Auto) 0.1 x10^3/uL (0.0-0.2) Urine Collection Type Unknown Urine Color Yellow Urine Clarity Hazy Urine pH 5.5 Urine Specific [place] 1.015 Urine Protein Neg (NEG-TRACE) Urine Glucose (UA) Neg mg/dL (NEG) Urine Ketones (Stick) Neg mg/dL (NEG) Urine Blood Neg (NEG) Urine Nitrite Neg (NEG) Urine Bilirubin Neg (NEG) Urine Urobilinogen Dipstick 0.2 mg/dL (0.2 mg/dL) Urine Leukocyte Esterase Trace (NEG) Urine RBC 1-2 /HPF (0-2) Urine WBC 11-20 /HPF (0-4) Urine Squamous Epithelial Cells Occ /LPF Urine Bacteria Few /HPF (0-FEW) Sodium Level 137 mmol/L (136-145) Potassium Level 3.8 mmol/L (3.5-5.1) Chloride Level 102 mmol/L (98-107) Carbon Dioxide Level 26 mmol/L (21-32) Anion Gap 9 (6-14) Blood Urea Nitrogen 12 mg/dL (7-20) Creatinine 0.9 mg/dL (0.6-1.0) Estimated GFR (Cockcroft-Gault) 74.3 BUN/Creatinine Ratio 13 (6-20) Glucose Level 168 mg/dL (70-99) Calcium Level 9.4 mg/dL (8.5-10.1) Total Bilirubin 0.3 mg/dL (0.2-1.0) Aspartate Amino Transf (AST/SGOT) 20 U/L (15-37) Alanine Aminotransferase (ALT/SGPT) 32 U/L (14-59) Alkaline Phosphatase 95 U/L (46-116) Total Protein 7.0 g/dL (6.4-8.2) Albumin 3.3 g/dL (3.4-5.0) Albumin/Globulin Ratio 0.9 (1.0-1.7) Vital Signs: VS - Last 72 Hours, by Label Date Time Temp Pulse Resp B/P (MAP) Pulse Ox O2 Delivery O2 Flow Rate FiO2 03/02/21 13:57 98.5 69 16 165/75 (105) 98 Room Air Heart Score: C/O Chest Pain: No Course & Med Decision Making: Course & Med Decision Making Pertinent Labs and Imaging studies reviewed. (See chart for details) While patient's blood glucose is elevated, it is unlikely she is experiencing diabetes ketoacidosis. Due to the reported behavior changes combined with the patient's age, UA will be obtained to evaluate for UTI. Labs were ordered to evaluate for other possible etiologies including electrolyte imbalances, leukocytosis or anemia. The only finding of significance on lab work performed is bacteria in the urine. Because the patient is having urinary symptoms she will be treated for UTI. She should follow-up with her primary care provider regarding today's visit, and for any ongoing behavioral changes or fatigue. She should return to the emergency department should she develop a fever or have increased pain. If her fatigue worsens, she should return to the emergency department. Dragon Disclaimer: Emeka Disclaimer: This electronic medical record was generated, in whole or in part, using a voice recognition dictation system. Departure Departure: Impression: Primary Impression: Urinary tract infection Qualified Codes: N39.0 - Urinary tract infection, site not specified Additional Impression: Hyperglycemia Disposition: 01 HOME / SELF CARE / HOMELESS Condition: STABLE Referrals: ARIEL VARELA DO (PCP) Patient Instructions: Fatigue, Urinary Tract Infection, [id number] Additional Instructions: Please take the full course of antibiotics you are prescribed. If your symptoms do not improve or if you notice blood in your urine or increased pain, return to the emergency department. You should also return to the department if you fall or lose consciousness secondary to your fatigue. Follow-up with your primary care provider regarding today's visit and for further evaluation of your ongoing hyperglycemia and fatigue. Scripts Cephalexin (KEFLEX) 500 Mg Capsule 1 CAP PO BID for UTI for 5 Days, #10 CAP Take 1 capsule by mouth twice per day for 5 days. Please be sure to take full course of antibiotics. Prov: KASHMIR FLORES 03/02/21 KASHMIR FLORES Mar 02, 2021 16:23
[2021-03-02 16:53] LABS: BILIRUBIN,URINE NEG (NEG); CLARITY,URINE HAZY; COLOR,URINE YELLOW; GLUCOSE,URINE NEG (NEG); NITRITE,URINE NEG (NEG); UROBILINOGEN,URINE 0.2 mg/dL (0.2 mg/dL)
[2021-03-02 16:54] LABS: BACTERIA,URINE FEW /HPF (0-FEW); SQUAMOUS EPITHELIAL CELL,UR OCC /LPF
[2021-03-02 16:59] LABS: BASO # 0.1 x10^3/uL (0.0-0.2); BASO % 2 % (0-3); EOS # 0.1 x10^3/uL (0.0-0.7); EOS % 2 % (0-3); HEMATOCRIT 39.2 % (36.0-47.0); HEMOGLOBIN 12.8 g/dL (12.0-15.5); LYMPH # 2.6 x10^3/uL (1.0-4.8); LYMPH % 35 % (24-48); MEAN CORPUSCULAR HEMOGLOBIN 30 pg (25-35); MEAN CORPUSCULAR HGB CONC 33 g/dL (31-37); MEAN CORPUSCULAR VOLUME 93 fL (79-100); MONO # 0.6 x10^3/uL (0.0-1.1); MONO % 8 % (0-9); NEUT % 54 % (31-73); PLATELET COUNT 250 x10^3/uL (140-400); RED BLOOD COUNT 4.24 x10^6/uL (3.50-5.40); RED CELL DISTRIBUTION WIDTH 14.9 % (11.5-14.5); WHITE BLOOD COUNT 7.4 x10^3/uL (4.0-11.0)
[2021-03-02 17:35] LABS: CALCIUM 9.4 mg/dL (8.5-10.1); CREATININE 0.9 mg/dL (0.6-1.0); GFR 74.3; POTASSIUM 3.8 mmol/L (3.5-5.1)
[2021-03-02 17:41] LABS: ALBUMIN 3.3 g/dL (3.4-5.0); ALBUMIN/GLOBULIN RATIO 0.9 (1.0-1.7); TOTAL BILIRUBIN 0.3 mg/dL (0.2-1.0)
[2021-03-02] MEDS ORDERED: CEPH500C PO (17:54)
== END 2021-03-02 18:18 | disposition home or self-care (01) ==
LOC: ER 13:28
DX: N39.0 Urinary tract infection, site not specified (principal); E11.65 Type 2 diabetes mellitus with hyperglycemia; Z88.8 Allergy status to other drugs, medicaments and biological substances; Z88.6 Allergy status to analgesic agent; Z90.49 Acquired absence of other specified parts of digestive tract; Z98.51 Tubal ligation status
CPT/HCPCS: 36415; 80053; 81001; 82947; 85025; 87086; 99283-25

== ENCOUNTER 2021-04-18 12:33 | Emergency (ER) | payer MEDICARE, OTHER ==
[~2021-04-18] VITALS: Ht 167.6 cm; Wt 112.0 kg
[~2021-04-18 12:33] MED LIST changes: +CEPH500C PO; -LISI-517; -LISI-517 PO; +LISI5TAB15; +LISI5TAB15 PO
[2021-04-18 13:40] LABS: BASO % 0 % (0-3); EOS % 0 % (0-3); HEMATOCRIT 36.9 % (36.0-47.0); HEMOGLOBIN 11.9 g/dL (12.0-15.5); LYMPH # 1.5 x10^3/uL (1.0-4.8); LYMPH % 17 % (24-48); MEAN CORPUSCULAR HEMOGLOBIN 30 pg (25-35); MEAN CORPUSCULAR HGB CONC 32 g/dL (31-37); MEAN CORPUSCULAR VOLUME 93 fL (79-100); MONO # 0.6 x10^3/uL (0.0-1.1); MONO % 7 % (0-9); NEUT % 76 % (31-73); PLATELET COUNT 258 x10^3/uL (140-400); RED BLOOD COUNT 3.96 x10^6/uL (3.50-5.40); RED CELL DISTRIBUTION WIDTH 14.8 % (11.5-14.5); WHITE BLOOD COUNT 9.3 x10^3/uL (4.0-11.0)
[2021-04-18] MEDS ORDERED: MORPHINE SULFATE 2 MG/ML DISP.SYRIN. ONE (13:44)
[2021-04-18] MEDS: MORPHINE SULFATE 2 MG/ML DISP.SYRIN. IV ONE (13:48)
--- NOTE | 2021-04-18 13:49 | PHYS DOC ---
Past History Past Medical History: Anxiety, Diabetes, Hypertension Additional Past Medical Histor: DDD, fatty liver Past Surgical History: Cholecystectomy, Tubal ligation, Other Additional Past Surgical Histo: tumor excision left knee, ganglion cyst left wrist, foot Smoking: Non-smoker Alcohol Use: None Drug Use: None General Adult EDM: Chief Complaint: MULTIPLE COMPLAINTS HPI: HPI: Patient is a 76-year-old female who presents to the emergency department for bilateral rib pain that radiates and wraps around to her back, worse in thoracic region that started 3 days ago. She rates her pain 7 out of 10. Her family member reports that the pain started after she was moving a crockpot. They put some cream on it for pain and it helped for a short amount of time. Pain is worse with palpation. She reports that the pain is so bad it has caused her to have decreased appetite, chronic cough. She denies fever or shortness of breath, vomiting, diarrhea or injury. Review of Systems: Review of Systems: 14 body systems of the review of systems have been reviewed. See HPI for pertinent positive and negative responses, otherwise all other systems are negative, nonpertinent or noncontributory Current Medications: Current Meds: Current Medications Medications (Trade) Dose Ordered Sig/Magda Start Time Stop Time Status Last Admin Dose Admin Fentanyl Citrate (Fentanyl 2ml Vial) 50 mcg 1X ONCE 04/18/21 13:15 04/18/21 13:37 DC Iohexol (Omnipaque 300 Mg/ml) 75 ml 1X ONCE 04/18/21 13:30 04/18/21 13:31 DC Morphine Sulfate (Morphine 2mg Syringe) 2 mg 1X ONCE 04/18/21 13:45 04/18/21 13:46 UNV Allergies: Allergies: Allergies Coded Allergies Type Severity Reaction Last Updated Verified acetic acid Allergy Intermediate 01/04/21 Yes bacitracin Allergy Intermediate 01/04/21 Yes carbamide peroxide Allergy Intermediate 01/04/21 Yes hydrocortisone Allergy Intermediate 01/04/21 Yes neomycin Allergy Intermediate 01/04/21 Yes polymyxin B Allergy Intermediate 01/04/21 Yes Physical Exam: PE: Constitutional: Well developed, well nourished, no acute distress, non-toxic appearance. [] HENT: Normocephalic, atraumatic, bilateral external ears normal, oropharynx moist, no oral exudates, nose normal. [] Eyes: PERRL, EOMI, conjunctiva normal, no discharge. [] Neck: Normal range of motion, no tenderness, supple, no stridor. [] Cardiovascular:Heart rate regular rhythm, no murmur, no chest pain with palpation Lungs & Thorax: Bilateral breath sounds clear to auscultation [] Abdomen: Bowel sounds normal, soft, no tenderness, no masses, no pulsatile masses. [] Skin: Warm, dry, no erythema, no rash. [] Back: thoracic paraspinal tenderness, normal range of motion Extremities: No tenderness, no cyanosis, no clubbing, ROM intact, no edema. [] Neurologic: Alert and oriented X 3, normal motor function, normal sensory function, no focal deficits noted. [] Psychologic: Affect normal, judgement normal, mood normal. [] Current Patient Data: Labs: Laboratory Tests Test 04/18/21 12:54 Glucose (Fingerstick) 108 mg/dL (70-99) H Laboratory Tests Test 04/18/21 12:54 04/18/21 13:11 04/18/21 13:26 Glucose (Fingerstick) 108 mg/dL Sodium Level 137 mmol/L Potassium Level 3.7 mmol/L Chloride Level 101 mmol/L Carbon Dioxide Level 28 mmol/L Anion Gap 8 Blood Urea Nitrogen 14 mg/dL Creatinine 0.9 mg/dL Estimated GFR (Cockcroft-Gault) 74.1 BUN/Creatinine Ratio 16 Glucose Level 127 mg/dL Calcium Level 9.4 mg/dL Total Bilirubin 0.6 mg/dL Aspartate Amino Transf (AST/SGOT) 17 U/L Alanine Aminotransferase (ALT/SGPT) 21 U/L Alkaline Phosphatase 88 U/L Total Protein 7.0 g/dL Albumin 3.3 g/dL Albumin/Globulin Ratio 0.9 White Blood Count 9.3 x10^3/uL Red Blood Count 3.96 x10^6/uL Hemoglobin 11.9 g/dL Hematocrit 36.9 % Mean Corpuscular Volume 93 fL Mean Corpuscular Hemoglobin 30 pg Mean Corpuscular Hemoglobin Concent 32 g/dL Red Cell Distribution Width 14.8 % Platelet Count 258 x10^3/uL Neutrophils (%) (Auto) 76 % Lymphocytes (%) (Auto) 17 % Monocytes (%) (Auto) 7 % Eosinophils (%) (Auto) 0 % Basophils (%) (Auto) 0 % Neutrophils # (Auto) 7.0 x10^3uL Lymphocytes # (Auto) 1.5 x10^3/uL Monocytes # (Auto) 0.6 x10^3/uL Eosinophils # (Auto) 0.0 x10^3/uL Basophils # (Auto) 0.0 x10^3/uL Troponin I High Sensitivity 6 ng/L Current Medications Medications (Trade) Dose Ordered Sig/Magda Route PRN Reason Start Time Stop Time Status Last Admin Dose Admin Fentanyl Citrate (Fentanyl 2ml Vial) 50 mcg 1X ONCE IVP 04/18/21 13:15 04/18/21 13:37 DC Iohexol (Omnipaque 300 Mg/ml) 75 ml 1X ONCE IV 04/18/21 13:30 04/18/21 13:31 DC 04/18/21 14:20 Morphine Sulfate (Morphine 2mg Syringe) 2 mg 1X ONCE IV 04/18/21 13:45 04/18/21 13:46 DC 04/18/21 13:48 Morphine Sulfate (Morphine 2mg Syringe) 2 mg STK-MED ONCE .ROUTE 04/18/21 13:44 04/18/21 13:45 DC Ketorolac Tromethamine (Toradol 15mg Vial) 15 mg 1X ONCE IVP 04/18/21 14:45 04/18/21 14:51 DC 04/18/21 14:44 Vital Signs: Vital Signs Date Time Temp Pulse Resp B/P (MAP) Pulse Ox O2 Delivery O2 Flow Rate FiO2 04/18/21 12:33 98.8 68 18 141/90 (107) 98 Room Air EKG: EKG: EKG performed by ER staff at 1302 shows sinus rhythm with a rate of 68, QTc of 510, no STEMI read by Dr. Baxter at 1315 [] Radiology/Procedures: Radiology/Procedures: []PROCEDURE: CT CHEST ABD PELVIS W/CONTRAST EXAM: CT CHEST, ABDOMEN, AND PELVIS WITH CONTRAST INDICATION: Rib pain, chest pain COMPARISON: CT chest 10/12/2016 TECHNIQUE: Helical CT imaging performed of the chest, abdomen and pelvis after administration of intravenous contrast. Sagittal and coronal reformats were obtained. One or more of the following individualized dose reduction techniques were utilized for this examination: 1. Automated exposure control 2. Adjustment of the mA and/or kV according to patient size 3. Use of iterative reconstruction technique. FINDINGS: CHEST: Thyroid gland and thoracic inlet: Normal. Heart and great vessels: The heart is normal in size. No pericardial effusion. The thoracic aorta is normal in caliber. 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 Mediastinum and morgan: No lymphadenopathy. Lungs and pleura: The lungs are clear. No pleural effusion or pneumothorax. Chest wall and axillae: No axillary lymphadenopathy. Mild soft tissue stranding in the lower left lateral chest wall/abdominal wall may be a soft tissue contusion. Bones: No acute osseous abnormality in the chest. There are bridging osteophytes at multiple levels in the thoracic spine. ABDOMEN AND PELVIS: Liver: There is a 1 cm fluid density cyst in the posterior right hepatic lobe. A few other subcentimeter hypodensities are too small to characterize. The liver is normal in size. Gallbladder/Biliary Tree: Gallbladder surgically absent. Bile ducts are normal. Pancreas: Normal. Spleen: Normal. Adrenal Glands: Normal. Kidneys/Ureters/Bladder: Kidneys are normal in size and enhance symmetrically. No hydronephrosis. The ureters and bladder are normal. Reproductive Organs: Uterus is anteverted. Probable 2 cm fibroid in the uterus. No adnexal mass. Stomach, small bowel, and colon: The stomach and small bowel are normal. There is scattered colonic diverticulosis, greatest in the sigmoid colon. The appendix is normal.. Vasculature: Abdominal aorta is normal in caliber. Lymph Nodes: No lymphadenopathy. Peritoneum and retroperitoneum: No free fluid or free air. Bones: No acute osseous abnormality. Minimal anterolisthesis of L3 on L4 and L4- L5. Mild lumbar degenerative disc disease. IMPRESSION: 1. No acute abnormality in the chest, abdomen, or pelvis. 2. Mild subcutaneous fat stranding in the lower left lateral chest wall/upper abdominal wall may be a soft tissue contusion. 3. Colonic diverticulosis. 4. Probable small hepatic cysts. 5. Probable 2 cm fibroid in the uterus. Electronically signed by: Thalia Painter MD (04/18/2021 3:08 PM) [id number] DICTATED AND SIGNED BY: THALIA PAINTER MD DATE: 04/18/21 1453 CC: ARIEL VARELA DO; INGA SAPP EVP MANAGING DIRECTOR ~MTH0 0 Heart Score: C/O Chest Pain: No Risk Factors: Risk Factors: DM, Current or recent (<one month) smoker, HTN, HLP, family history of CAD, obesity. Risk Scores: Score 0 - 3: 2.5% MACE over next 6 weeks - Discharge Home Score 4 - 6: 20.3% MACE over next 6 weeks - Admit for Clinical Observation Score 7 - 10: 72.7% MACE over next 6 weeks - Early Invasive Strategies Course & Med Decision Making: Course & Med Decision Making Pertinent Labs and Imaging studies reviewed. (See chart for details) Patient presents to the emergency department for bilateral rib pain taht wraps around her entire chest and to her thoracic area of back. Work up in the ER consisted of blood work, urinalysis, ct chest/abd/pelvis. Initially, a chest xray was ordered but patient refused stating that she does not have chest pain and does not need an xray but she is concerned about her hx of fatty liver disease. patient treated with pain medication. Lab work unremarkable. Patient CT of her chest abdomen and pelvis were negative for any acute findings, fat stranding indicating soft tissue injury possibly from the injury from lifting the crockpot. Patient advised to take Tylenol/ibuprofen for pain. I offered prescribing lidocaine patches for patient she refused stating that those don't work. Patient advised to follow-up with her primary care provider. I discussed with patient all findings and diagnostic testing as well as the need to follow- up with PCP for further evaluation and treatment or return to the ER if any new or worsening symptoms. Strict return precautions were also discussed at length. Patient voiced understanding and agreement with the plan. Patient is hemodynamically stable at the time of disposition. Emeka Disclaimer: Emeka Disclaimer: This electronic medical record was generated, in whole or in part, using a voice recognition dictation system. Departure Departure: Impression: Primary Impression: Back pain Qualified Codes: M54.6 - Pain in thoracic spine Disposition: HOME / SELF CARE / HOMELESS Condition: GOOD Referrals: ARIEL VARELA DO (PCP) Patient Instructions: Thoracic Strain Additional Instructions: You're seen in the emergency department for rib pain that wraps around your chest. Your lab work was unremarkable. It does not appear that at this time you are experiencing acute coronary syndrome. However, it is necessary that you follow up with your PCP regarding your pain to monitor your heart. It is likely that your pain is due to lifting the crockpot. You can take Tylenol and ibuprofen at home. Follow-up with your primary care provider tomorrow regarding your ER visit. Return to the emergency department if you develop chest pain, shortness of breath, high fevers refractory to treatment, intractable nausea or vomiting. EMERGENCY DEPARTMENT GENERAL DISCHARGE INSTRUCTIONS Thank you for coming to [facility] (ED) today and trusting us with you care. We trust that you had a positivie experience in our Emergency Department. If you wish to speak to the department management, you may call the director at [phone]. YOUR FOLLOW UP INSTRUCTIONS ARE FOLLOWS: 1. Do you have a private Doctor? If you do not have a private doctor, please ask for a resource list of physicians or clinics that may be able to assist you with follow up care. 2. The Emergency Physician has interpreted your x-rays. The X-Ray specialist will also review them. If there is a change in the findings, you will be notified in 48 hours when at all possible. 3. A lab test or culture has been done, your results will be reviewed and you will be notified if you need a change in treatment. ADDITIONAL INSTRUCTIONS AND INFORMATION: 1. Your care today has been supervised by a physician who is specially trained in emergency care. Many problems require more than one evaluation for a complete diagnosis and treatment. We recommend that you schedule your follow up appointment as recommended to ensure complete treatment of you illness or injury. If you are unable to obtain follow up care and continue to have a problem, or if your condition worsens, we recommend that you return to the ED. 2. We are not able to safely determine your condition over the phone nor are we able to give sound medical advice over the phone. For these safety reasons, if you call for medical advice we will ask you to come to the ED for further evaluation. 3. If you have any questions regarding these discharge instructions please call the ED at [phone]. SAFETY INFORMATION: In the interest of safety, wellness, and injury prevention; we encourage you to wear your sealbelt, if you smoke; quite smoking, and we encourage family to use a protective helmet for bicycling and other sporting events that present an increased risk for head injury. IF YOUR SYMPTOMS WORSEN OR NEW SYMPTOMS DEVELOP, OR YOU HAVE CONCERNS ABOUT YOUR CONDITION; OR IF YOUR CONDITION WORSENS WHILE YOU ARE WAITING FOR YOUR FOLLOW UP APPOINTMENT; EITHER CONTACT YOUR PRIMARY CARE DOCTOR, THE PHYSICIAN WHOSE NAME AND NUMBER YOU WERE GIVEN, OR RETURN TO THE ED IMMEDIATELY. INGA SAPP APRN Apr 18, 2021 13:49
[2021-04-18 13:53] LABS: CALCIUM 9.4 mg/dL (8.5-10.1); CREATININE 0.9 mg/dL (0.6-1.0); GFR 74.1; POTASSIUM 3.7 mmol/L (3.5-5.1)
[2021-04-18 14:01] LABS: ALBUMIN 3.3 g/dL (3.4-5.0); ALBUMIN/GLOBULIN RATIO 0.9 (1.0-1.7); TOTAL BILIRUBIN 0.6 mg/dL (0.2-1.0)
[2021-04-18] MEDS: IOHEXOL 300 MG/ML 75 ML VIAL. IV ONE (14:20)
[2021-04-18] MEDS: KETOROLAC 15 MG/ML VIAL. IVP ONE (14:44)
--- NOTE | 2021-04-18 15:11 | RAD ---
EXAM: CT CHEST, ABDOMEN, AND PELVIS WITH CONTRAST INDICATION: Rib pain, chest pain COMPARISON: CT chest 10/12/2016 TECHNIQUE: Helical CT imaging performed of the chest, abdomen and pelvis after administration of intr avenous contrast. Sagittal and coronal reformats were obtained. One or more of the following individualized dose reduction techniques were utilized for this examinat ion: 1. Automated exposure control 2. Adjustment of the mA and/or kV according to patient size 3. Use of iterative reconstruction technique. FINDINGS: CHEST: Thyroid gland and thoracic inlet: Normal. Heart and great vessels: The heart is normal in size. No pericardial effusion. The thoracic aorta is normal in caliber. 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 Mediastinum and morgan: No lymphadenopathy. Lungs and pleura: The lungs are clear. No pleural effusion or pneumothorax. Chest wall and axillae: No axillary lymphadenopathy. Mild soft tissue stranding in the lower left lat eral chest wall/abdominal wall may be a soft tissue contusion. Bones: No acute osseous abnormality in the chest. There are bridging osteophytes at multiple levels i n the thoracic spine. ABDOMEN AND PELVIS: Liver: There is a 1 cm fluid density cyst in the posterior right hepatic lobe. A few other subcentime ter hypodensities are too small to characterize. The liver is normal in size. Gallbladder/Biliary Tree: Gallbladder surgically absent. Bile ducts are normal. Pancreas: Normal. Spleen: Normal. Adrenal Glands: Normal. Kidneys/Ureters/Bladder: Kidneys are normal in size and enhance symmetrically. No hydronephrosis. The ureters and bladder are normal. Reproductive Organs: Uterus is anteverted. Probable 2 cm fibroid in the uterus. No adnexal mass. Stomach, small bowel, and colon: The stomach and small bowel are normal. There is scattered colonic d iverticulosis, greatest in the sigmoid colon. The appendix is normal.. Vasculature: Abdominal aorta is normal in caliber. Lymph Nodes: No lymphadenopathy. Peritoneum and retroperitoneum: No free fluid or free air. Bones: No acute osseous abnormality. Minimal anterolisthesis of L3 on L4 and L4-L5. Mild lumbar degen erative disc disease. IMPRESSION: 1. No acute abnormality in the chest, abdomen, or pelvis. 2. Mild subcutaneous fat stranding in the lower left lateral chest wall/upper abdominal wall may be a soft tissue contusion. 3. Colonic diverticulosis. 4. Probable small hepatic cysts. 5. Probable 2 cm fibroid in the uterus. Electronically signed by: Thalia Painter MD (04/18/2021 3:08 PM) [id number]
[2021-04-18 15:50] VITALS: BP 120/63
--- NOTE | 2021-04-18 16:51 | EKG ---
[address] [address] Test Date: 2021-04-18 Test Time: 13:02:03 Pat Name: CLARE ROSARIO Department: Room: Gender: F Administrative Aide: DOROTA : 1945 Requested By: INGA SAPP Order Number: [id number] Reading MD: Felton Christiansen Measurements Intervals [place] Rate: 68 P: 54 DE: 144 QRS: -20 QRSD: 80 T: 24 QT: 474 QTc: 510 Interpretive Statements SINUS RHYTHM LEFTWARD AXIS PROLONGED QT Electronically Signed On 04-24-2021 10:22:37 JEWELRY JOBBER by Felton Christiansen
== END 2021-04-18 16:08 | disposition home or self-care (01) ==
LOC: ER 12:33
DX: M54.6 Pain in thoracic spine (principal); E11.9 Type 2 diabetes mellitus without complications; I10 Essential (primary) hypertension; Z90.49 Acquired absence of other specified parts of digestive tract; Z98.51 Tubal ligation status
CPT/HCPCS: 36415; 71260; 74177; 80053; 82947; 84484; 85025; 93005; 96374; 96375; 99285; J1885; J2270; Q9967

== ENCOUNTER 2021-05-19 10:32 | Emergency (ER) | payer MEDICARE, OTHER ==
[~2021-05-19] VITALS: Ht 167.6 cm; Wt 112.0 kg
--- NOTE | 2021-05-19 11:32 | PHYS DOC ---
Past History Past Medical History: Anxiety, Diabetes, Hypertension Additional Past Medical Histor: DDD, fatty liver Past Surgical History: Cholecystectomy, Tubal ligation, Other Additional Past Surgical Histo: tumor excision left knee, ganglion cyst left wrist, foot Smoking: Non-smoker Alcohol Use: None Drug Use: None Adult General Chief Complaint Chief Complaint: HYPERTENSION HPI HPI Patient is a 78-year-old female presenting to the ED with her daughter for hypertension. Her last reading was 180s/70s at her PCP office prior to arriving at the ED. Reports she has been taking her medications regularly, but ran out of her night medications about a week ago. She reports having a severe headache and has noted an increase in dizziness for the last 2 weeks. Had a syncopal episode on Tuesday 05/15. She also reports having some ear pain and photophobia for the last 3 to 4 days. Denies fever, chills, visual changes, dysuria. Describes occasional chest pain that she attributes to indigestion, shortness of breath that is chronic in nature. Daughter indicates that she has been more lethargic and mildly confused for the last week as well. Denies family history of heart problems. Review of Systems Review of Systems Fourteen body systems of review of systems have been reviewed. See HPI for pertinent positives and negative responses, other ko all other systems are negative, non-pertinent or non-contributory Family History Family History No history provided Allergies Allergies Allergies Coded Allergies Type Severity Reaction Last Updated Verified acetic acid Allergy Intermediate 01/04/21 Yes bacitracin Allergy Intermediate 01/04/21 Yes carbamide peroxide Allergy Intermediate 01/04/21 Yes hydrocortisone Allergy Intermediate 01/04/21 Yes neomycin Allergy Intermediate 01/04/21 Yes polymyxin B Allergy Intermediate 01/04/21 Yes Physical Exam Physical Exam Constitutional: Well developed, well nourished, no acute distress, non-toxic appearance, mildly drowsy HENT: Normocephalic, atraumatic, bilateral external ears normal, bilateral tympanic membranes with fluid behind them bilaterally with out loss of cone of light or other infectious signs such as injection or erythema or bulging of TM, oropharynx moist, no oral exudates, nose normal. Eyes: PERRLA, EOMI, conjunctiva normal, no discharge. Neck: Normal range of motion, no tenderness, supple, no stridor. Cardiovascular: Heart rate regular, sinus rhythm, no murmurs rubs or gallops Lungs & Thorax: Bilateral breath sounds clear to auscultation Abdomen: Bowel sounds normal, soft, no tenderness, no masses, no pulsatile masses. Nonsurgical abdomen, no peritoneal signs Skin: Warm, dry, no erythema, no rash. Back: No tenderness, no CVA tenderness. Extremities: No tenderness, no cyanosis, no clubbing, ROM intact, no edema. Neurologic: Alert and oriented X 3, cranial nerves II through XII intact, downgoing toes bilaterally with stimulation, NIH stroke scale 0, normal motor & sensory function, no focal deficits noted. Psychologic: Affect normal, judgement normal, mood normal. Current Patient Data Vital Signs Vital Signs Date Time Temp Pulse Resp B/P (MAP) Pulse Ox O2 Delivery O2 Flow Rate FiO2 05/19/21 11:39 98.4 63 18 159/75 (103) 98 Room Air Vital Signs Date Time Temp Pulse Resp B/P (MAP) Pulse Ox O2 Delivery O2 Flow Rate FiO2 05/19/21 12:33 61 185/73 05/19/21 11:39 98.4 18 98 Room Air Lab Results Laboratory Tests Test 05/19/21 12:14 05/19/21 12:29 White Blood Count 6.2 x10^3/uL Red Blood Count 4.05 x10^6/uL Hemoglobin 12.2 g/dL Hematocrit 37.6 % Mean Corpuscular Volume 93 fL Mean Corpuscular Hemoglobin 30 pg Mean Corpuscular Hemoglobin Concent 32 g/dL Red Cell Distribution Width 14.9 % Platelet Count 219 x10^3/uL Neutrophils (%) (Auto) 51 % Lymphocytes (%) (Auto) 38 % Monocytes (%) (Auto) 10 % Eosinophils (%) (Auto) 1 % Basophils (%) (Auto) 0 % Neutrophils # (Auto) 3.1 x10^3uL Lymphocytes # (Auto) 2.3 x10^3/uL Monocytes # (Auto) 0.6 x10^3/uL Eosinophils # (Auto) 0.1 x10^3/uL Basophils # (Auto) 0.0 x10^3/uL Sodium Level 143 mmol/L Potassium Level 4.2 mmol/L Chloride Level 105 mmol/L Carbon Dioxide Level 28 mmol/L Anion Gap 10 Blood Urea Nitrogen 8 mg/dL Creatinine 0.9 mg/dL Estimated GFR (Cockcroft-Gault) 74.1 BUN/Creatinine Ratio 9 Glucose Level 87 mg/dL Calcium Level 9.2 mg/dL Total Bilirubin 0.3 mg/dL Aspartate Amino Transf (AST/SGOT) 19 U/L Alanine Aminotransferase (ALT/SGPT) 31 U/L Alkaline Phosphatase 96 U/L Troponin I High Sensitivity 9 ng/L Total Protein 7.0 g/dL Albumin 3.4 g/dL Albumin/Globulin Ratio 0.9 Urine Collection Type Clean catch Urine Color Yellow Urine Clarity Clear Urine pH 5.5 Urine Specific [place] 1.015 Urine Protein Neg Urine Glucose (UA) 500 mg/dL Urine Ketones (Stick) Neg mg/dL Urine Blood Neg Urine Nitrite Neg Urine Bilirubin Neg Urine Urobilinogen Dipstick 1.0 mg/dL Urine Leukocyte Esterase Small Urine RBC 1-2 /HPF Urine WBC >40 /HPF Urine Squamous Epithelial Cells Occ /LPF Urine Bacteria Few /HPF Current Medications Medications (Trade) Dose Ordered Sig/Magda Route PRN Reason Start Time Stop Time Status Last Admin Dose Admin Aspirin (Aspirin Chewable) 324 mg 1X ONCE PO 05/19/21 12:30 05/19/21 12:31 DC 05/19/21 12:35 Acetaminophen (Tylenol) 650 mg 1X ONCE PO 05/19/21 12:30 05/19/21 12:31 DC 05/19/21 12:32 Meclizine HCl (Antivert) 25 mg 1X ONCE PO 05/19/21 12:30 05/19/21 12:31 DC 05/19/21 12:32 Clonidine HCl (Catapres) 0.1 mg 1X ONCE PO 05/19/21 12:30 05/19/21 12:31 DC 05/19/21 12:33 Ceftriaxone Sodium 1 gm/ Sodium Chloride 50 ml @ 100 mls/hr 1X ONCE IV 05/19/21 13:45 05/19/21 14:14 05/19/21 13:50 Sodium Chloride 50 ml @ As Directed STK-MED ONCE .ROUTE 05/19/21 13:46 05/19/21 13:46 DC Ceftriaxone Sodium (Rocephin) 1 gm STK-MED ONCE .ROUTE 05/19/21 13:46 05/19/21 13:46 DC EKG EKG EKG ordered and interpreted by myself at 1057 hrs. is sinus rhythm at 63 bpm, p rolonged QTC at 478 otherwise unremarkable intervals, left axis deviation, no obvious ischemic findings, no STEMI Radiology/Procedures Radiology/Procedures EXAMINATION: CT HEAD/BRAIN WO CLINICAL HISTORY: Dizziness TECHNIQUE: Serial axial images without IV contrast were obtained from the vertex to the foramen magnum. CT Dose Reduction Employed: One or more of the following individualized dose reduction techniques were utilized for this examination: 1. Automated exposure control 2. Adjustment of the mA and/or kV according to patient size 3. Use of iterative reconstruction technique. COMPARISON: 01/04/2021 FINDINGS: Acute Change: No evidence of an acute infarct or other acute parenchymal process. Hemorrhage: No evidence of acute intracranial hemorrhage. Mass Lesion/Mass Effect: No evidence of extraaxial fluid collection. Probable small lipoma along the anterior left tentorium, similar to prior study. No significant mass effect. Chronic Change: Atherosclerotic calcification of the intracranial portion of the bilateral internal carotid arteries. Parenchyma: Mild generalized volume loss. Ventricles: Ventricular enlargement concordant with degree of parenchymal volume loss. Paranasal Sinuses and Skull Base: Visualized paranasal sinuses clear. Visualized skull base and soft tissues unremarkable. IMPRESSION: No evidence of acute intracranial abnormality or significant interval change. Electronically signed by: Matt Perales DO (05/19/2021 12:35 PM) [id number] //////////////////////// EXAM: AP View of the chest DATE: 05/19/2021 12:12 PM INDICATION: Reason: dizzy / Spl. Instructions: / History: COMPARISON: 01/04/2021 FINDINGS: The heart is not enlarged. Mediastinal and hilar contours are normal. No focal parenchymal airspace opacity. No pleural effusion or pneumothorax. IMPRESSION: 1. No radiographic evidence for acute cardiopulmonary process. Electronically signed by: Michael Ritter MD (05/19/2021 12:46 PM) [id number] Heart Score C/O Chest Pain: No HEART Score for Chest Pain: HEART Score for Chest Pain Response (Comments) Value History Moderately Suspicious 1 ECG Normal 0 Age > 65 2 Risk Factors >3 Risk Factors or Hx CAD 2 Troponin < Normal Limit 0 Total 5 Risk Factors: Risk Factors: DM, Current or recent (<one month) smoker, HTN, HLP, family history of CAD, obesity. Risk Scores: Risk Factors: DM, Current or recent (<one month) smoker, HTN, HLP, family history of CAD, obesity. Course & Med Decision Making Course & Med Decision Making ABCs unremarkable History obtained from patient and daughter which was scattered, physical exam and comprehensive ER work-up nonconcerning for any emergent or surgical issues I disclosed all findings to patient and daughter at bedside and discussed no obvious emergent or surgical issues With that said, I discussed that patient's presenting symptoms were multi factorial. Patient has had headache, likely due to ongoing URI versus poorly managed hypertension due to fact that patient has been out of lisinopril for last few days to a week Patient also complaining of dizziness, this improved with meclizine administered today. I question post viral labor enteritis versus vertigo I discussed findings that were nonconcerning to myself for a UTI; however, daughter adamant about treating patient for UTI as daughter states patient "acts like this whenever she has had a UTI in the past". 1 g Rocephin with Omnicef prescription given Patient was able to ambulate and hemodynamically stable after ER intervention. I discussed utility of hospitalization but patient and daughter deferred, they state they have good PCP access and patient lives with daughter so she can watch and assume all care of patient As such, strict return precautions were discussed with good understanding by patient and daughter. All questions and concerns addressed prior to ER departure Emeka Disclaimer Emeka Disclaimer This electronic medical record was generated, in whole or in part, using a voice recognition dictation system. Departure Departure: Impression: Primary Impression: UTI (urinary tract infection) Additional Impressions: Dizziness HTN (hypertension) Disposition: 01 HOME / SELF CARE / HOMELESS Condition: STABLE Referrals: ARIEL VARELA DO (PCP) Additional Instructions: You were seen for a urinary tract infection. Please continue to take the antibiotics as prescribed. In addition, there is no concerning findings for reported dizziness. There is concern that you might be suffering from labor enteritis and/or vertigo based on your symptoms. These improved with meclizine medication administration. As a result, you have been given a prescription for this which should be used as needed for dizziness. In addition, it is advised you fill your chronic medications intake them as prescribed, specifically your lisinopril for high blood pressure. Please contact your primary care physician to review ER visit today and need for close outpatient follow-up for repeat evaluation to ensure continued symptom resolution. You should return to the ED if you develop worsening pain, fever, flank pain, or any other new or concerning symptoms. Scripts Meclizine Hcl (MECLIZINE HCL) 12.5 Mg Tablet 1 TAB PO TID PRN for DIZZINESS, #15 TAB Prov: PATRICE BULLARD DO 05/19/21 Cefdinir (CEFDINIR) 300 Mg Capsule 1 CAP PO BID for UTI, #20 CAP Prov: PATRICE BULLARD DO 05/19/21 Problem Qualifiers PATRICE BULLARD DO May 19, 2021 11:32
--- NOTE | 2021-05-19 11:56 | EKG ---
[address] [address] Test Date: 2021-05-19 Test Time: 10:54:00 Pat Name: CLARE ROSARIO Department: Room: Gender: F [employer] Operator: NICKIE : [id number] Requested By: PATRICE BULLARD Order Number: [id number] Reading MD: Maximiliano Muniz MD Measurements Intervals [place] Rate: 63 P: 28 NC: 130 QRS: -15 QRSD: 82 T: 26 QT: 464 QTc: 478 Interpretive Statements SINUS RHYTHM Electronically Signed On 05-21-2021 20:51:01 PHYSICAL THERAPIST by Maximiliano Muniz MD
[2021-05-19] MEDS ORDERED: MECLIZINE 12.5 MG TABLET. PO ONE (12:30)
[2021-05-19] MEDS ORDERED: ASPIRIN CHEWABLE 81 MG TABLET. PO ONE (12:30)
[2021-05-19] MEDS ORDERED: cloNIDine HCL 0.1 MG TABLET PO ONE (12:30)
[2021-05-19] MEDS ORDERED: ACETAMINOPHEN 325 MG TABLET PO ONE (12:30)
--- NOTE | 2021-05-19 12:38 | RAD ---
EXAMINATION: CT HEAD/BRAIN WO CLINICAL HISTORY: Dizziness TECHNIQUE: Serial axial images without IV contrast were obtained from the vertex to the foramen magnu m. CT Dose Reduction Employed: One or more of the following individualized dose reduction techniques wer e utilized for this examination: 1. Automated exposure control 2. Adjustment of the mA and/or kV ac cording to patient size 3. Use of iterative reconstruction technique. COMPARISON: 01/04/2021 FINDINGS: Acute Change: No evidence of an acute infarct or other acute parenchymal process. Hemorrhage: No evidence of acute intracranial hemorrhage. Mass Lesion/Mass Effect: No evidence of extraaxial fluid collection. Probable small lipoma along the anterior left tentorium, similar to prior study. No significant mass effect. Chronic Change: Atherosclerotic calcification of the intracranial portion of the bilateral internal c arotid arteries. Parenchyma: Mild generalized volume loss. Ventricles: Ventricular enlargement concordant with degree of parenchymal volume loss. Paranasal Sinuses and Skull Base: Visualized paranasal sinuses clear. Visualized skull base and soft tissues unremarkable. IMPRESSION: No evidence of acute intracranial abnormality or significant interval change. Electronically signed by: Matt Perales DO (05/19/2021 12:35 PM) [id number]
[2021-05-19 12:43] LABS: BASO % 0 % (0-3); EOS # 0.1 x10^3/uL (0.0-0.7); EOS % 1 % (0-3); HEMATOCRIT 37.6 % (36.0-47.0); HEMOGLOBIN 12.2 g/dL (12.0-15.5); LYMPH # 2.3 x10^3/uL (1.0-4.8); LYMPH % 38 % (24-48); MEAN CORPUSCULAR HEMOGLOBIN 30 pg (25-35); MEAN CORPUSCULAR HGB CONC 32 g/dL (31-37); MEAN CORPUSCULAR VOLUME 93 fL (79-100); MONO # 0.6 x10^3/uL (0.0-1.1); MONO % 10 % (0-9); NEUT # 3.1 x10^3uL (1.8-7.7); NEUT % 51 % (31-73); PLATELET COUNT 219 x10^3/uL (140-400); RED BLOOD COUNT 4.05 x10^6/uL (3.50-5.40); RED CELL DISTRIBUTION WIDTH 14.9 % (11.5-14.5); WHITE BLOOD COUNT 6.2 x10^3/uL (4.0-11.0)
--- NOTE | 2021-05-19 12:49 | RAD ---
EXAM: AP View of the chest DATE: 05/19/2021 12:12 PM INDICATION: Reason: dizzy / Spl. Instructions: / History: COMPARISON: 01/04/2021 FINDINGS: The heart is not enlarged. Mediastinal and hilar contours are normal. No focal parenchymal airspace opacity. No pleural effusion or pneumothorax. IMPRESSION: 1. No radiographic evidence for acute cardiopulmonary process. Electronically signed by: Michael Ritter MD (05/19/2021 12:46 PM) [id number]
[2021-05-19 13:09] LABS: CALCIUM 9.2 mg/dL (8.5-10.1); CREATININE 0.9 mg/dL (0.6-1.0); GFR 74.1; POTASSIUM 4.2 mmol/L (3.5-5.1)
[2021-05-19 13:14] LABS: ALBUMIN 3.4 g/dL (3.4-5.0); ALBUMIN/GLOBULIN RATIO 0.9 (1.0-1.7); TOTAL BILIRUBIN 0.3 mg/dL (0.2-1.0)
[2021-05-19 13:19] LABS: BILIRUBIN,URINE NEG (NEG); CLARITY,URINE CLEAR; COLOR,URINE YELLOW; GLUCOSE,URINE 500 mg/dL (NEG)
[2021-05-19 13:20] LABS: BACTERIA,URINE FEW /HPF (0-FEW); NITRITE,URINE NEG (NEG); SQUAMOUS EPITHELIAL CELL,UR OCC /LPF; WBC,URINE >40 /HPF (0-4)
[2021-05-19] MEDS ORDERED: cefTRIAXone SODIUM 1 GM VIAL ONE (13:46)
[2021-05-19] MEDS ORDERED: IV NORMAL SALINE 50ML 50 ML ONE (13:46)
[2021-05-19] MEDS ORDERED: MECL12.582 PO (14:02)
[2021-05-19] MEDS ORDERED: CEFD300C PO (14:02)
[2021-05-19 14:10] VITALS: BP 139/58
== END 2021-05-19 14:20 | disposition home or self-care (01) ==
LOC: ER 10:32
DX: I10 Essential (primary) hypertension (principal); N39.0 Urinary tract infection, site not specified; R42 Dizziness and giddiness; Z20.822 Contact with and (suspected) exposure to COVID-19
CPT/HCPCS: 70450; 71045; 80053; 81001; 84484; 85025; 87086; 93005; 96365; 99285; C9803; J0696; U0003